=== PATIENT | female | born 1960 | race Caucasian/White ===

== ENCOUNTER 2016-12-27 17:43 | Inpatient (IN) | payer BC ==
[2016-12-27] MEDS ORDERED: MORPHINE SULFATE 4 MG INJ IV ONE (18:42)
[2016-12-27] MEDS ORDERED: DUONEB 0.5-3 MG/3 ml Neb IH ONE ×2 (18:42→18:53)
[2016-12-27] MEDS ORDERED: Zofran 4 MG/2 ML VIAL IV ONE (18:42)
[2016-12-27] MEDS ORDERED: Sodium Chloride 0.9% 1000 ML 1,000 ML IV SCH (18:45)
--- NOTE | 2016-12-27 18:47 | ERPHSYRPT ---
- History of Present Illness Time Seen by Provider: 12/27/16 18:44 Source: patient Exam Limitations: no limitations Physician History: 56 y/o female comes to the ER with complaints of diffuse bone pain, pleuritic chest pain, cough, subjective fever and chills for the past 3 days. Pt states she feels the same as when she had a walking pneumonia. Pt describes the pain as sharp, constant, 10/10 and not relieved by norco. Pt also admits to dry heaving and occasional vomiting. Timing/Duration: day(s) (3 days) Cough Quality/Degree: moderate Possible Cause: no prior episodes Associated Symptoms: fever, chills, chest pain/soreness, cough Allergies/Adverse Reactions: venom-wasp [Wasp Venom] Allergy (Intermediate, Verified 12/27/16 18:51) air way swelling fluticasone propionate [From Advair Diskus] Adverse Reaction (Mild, Verified 18:51) mouth sores salmeterol xinafoate [From Advair Diskus] Adverse Reaction (Mild, Verified 12/27 18:51) mouth sores Home Medications: Aspirin 81 gm Chew [Baby Aspirin 81 mg Chew] 81 mg PO DAILY 12/10/13 [ History] Cyclobenzaprine HCl [Flexeril] 10 mg PO HS PRN 12/10/13 [History] Hydrocodone Bit/Acetaminophen [Hydrocodon-Acetaminophen 5-500] 1 each PO Q4- 6HPRN 12/10/13 [History] Lorazepam 0.5 mg [Ativan 0.5 MG] 0.5 mg PO QID PRN 12/10/13 [History] Omeprazole [Prilosec] 40 mg PO DAILY 12/10/13 [History] Hx Tetanus, Diphtheria Vaccination/Date Given: Yes Hx Influenza Vaccination/Date Given: No Hx Pneumococcal Vaccination/Date Given: Yes (T-1) - Review of Systems Constitutional: Fever, Chills, Weakness Eyes: No Symptoms Ears, Nose, & Throat: No Symptoms Respiratory: Cough, No Dyspnea Cardiac: Chest Pain, No Edema, No Syncope Abdominal/Gastrointestinal: No Abdominal Pain, No Nausea, No Vomiting, No Diarrhea Genitourinary Symptoms: No Dysuria Musculoskeletal: Arthralgias, Joint Pain, No Back Pain, No Neck Pain Skin: No Rash Neurological: No Dizziness, No Focal Weakness, No Sensory Changes Psychological: No Symptoms Endocrine: No Symptoms All Other Systems: Reviewed and Negative - Past Medical History Pertinent Past Medical History: Yes Neurological History: Migraines ENT History: No Pertinent History Cardiac History: Other Respiratory History: COPD Endocrine Medical History: No Pertinent History Musculoskeletal History: Other GI Medical History: GERD, Other History: No Pertinent History Psycho-Social History: Anxiety Female Reproductive Disorders: No Pertinent History Other Medical History: hiatal hernia, cardiac ablation, back disc problems - Past Surgical History Past Surgical History: Yes Neuro Surgical History: No Pertinent History Cardiac: Other Respiratory: No Pertinent History Gastrointestinal: No Pertinent History Genitourinary: No Pertinent History Musculoskeletal: Orthopedic Surgery Female Surgical History: Section, Other Other Surgical History: right arm and shoulder. left shoulder cystectomy. 2 tubal pregnancies. heart ablations - Social History Smoking Status: Former smoker How long have you smoked: 20years Exposure to second hand smoke: No Drug Use: none Patient Lives Alone: No - Female History Hx Now: No - Nursing Vital Signs Nursing Vital Signs: Initial Vital Signs Temperature 102.7 F Pulse Rate 96 Respiratory Rate 18 Blood Pressure [Left Arm] 116/54 Blood Pressure [Right Arm] 98/79 Pain Intensity 10 - Physical Exam General Appearance: mild distress, alert Eye Exam: PERRL/EOMI, eyes nml inspection Ears, Nose, Throat Exam: normal ENT inspection, TMs normal, pharynx normal, moist mucous membranes Neck Exam: normal inspection, non-tender, supple, full range of motion Respiratory Exam: normal breath sounds, wheezing, No respiratory distress Cardiovascular Exam: regular rate/rhythm, normal heart sounds Gastrointestinal/Abdomen Exam: soft, No tenderness Back Exam: normal inspection, No CVA tenderness, No vertebral tenderness Extremity Exam: normal inspection, normal range of motion Neurologic Exam: alert, oriented x 3, cooperative, normal mood/affect, sensation nml, No motor deficits Skin Exam: normal color, warm, dry, No rash Lymphatic Exam: No adenopathy - Course Nursing assessment & vital signs reviewed: Yes Ordered Tests: Active Orders 24 hr Category Date Time Status EKG-ER Only STAT Care 12/27/16 18:41 Active CHEST 2 VIEWS (PA AND LAT) Stat Exams 12/27/16 18:41 Taken BLOOD CULTURE Stat Lab 12/27/16 19:09 Received BNP [NT PRO BNP] Stat Lab 12/27/16 19:09 Completed CBCD [CBC W DIFF] Stat Lab 12/27/16 18:55 Completed CMP Stat Lab 12/27/16 18:55 Completed CULTURE,URINE Stat Lab 12/27/16 20:37 Received Lactic Acid Stat Lab 12/27/16 18:57 Completed TROPONIN Stat Lab 12/27/16 19:10 Completed UA W/ MICROSCOPIC Stat Lab 12/27/16 20:37 Completed Respiratory Nebulizer STAT RT 12/27/16 18:42 Completed Medication Summary Generic Name Dose Route Start Last Admin Trade Name Freq PRN Reason Stop Dose Admin Sodium Chloride 1,000 mls @ 150 mls/hr 12/27/16 18:45 12/27/16 18:57 Sodium Chloride 0.9% 1000 Ml IV 01/26/17 18:44 150 mls/hr .[id number] BERNARD Administration Discontinued Medications Generic Name Dose Route Start Last Admin Trade Name Freq PRN Reason Stop Dose Admin Acetaminophen 975 mg 12/27/16 19:00 12/27/16 19:06 Tylenol 325 Mg PO 12/27/16 19:01 975 mg STAT STA Administration Acetaminophen Confirm 12/27/16 19:06 Tylenol 325 Mg Administered 12/27/16 19:07 Dose 975 mg .ROUTE .STK-MED ONE Albuterol/Ipratropium 3 ml 12/27/16 18:42 12/27/16 18:58 Duoneb 0.5-3 Mg/3 Ml Neb IH 12/27/16 18:43 3 ml STAT ONE Administration Albuterol/Ipratropium Confirm 12/27/16 18:53 Duoneb 0.5-3 Mg/3 Ml Neb Administered 12/27/16 18:54 Dose 3 ml IH .STK-MED ONE Piperacillin Sod/Tazobactam Sod 3.375 gm in 100 mls @ 200 mls/hr 12/27/16 18: 55 Zosyn 3.375gm/100 Ml D5w IV 12/27/16 19:24 STAT STA Vancomycin HCl 1 gm in 250 mls @ 167 mls/hr 12/27/16 18:55 12/27/16 19:05 Vancomycin 1gm/ Ns 250ml IV 12/27/16 20:24 167 mls/hr STAT ONE Administration Vancomycin HCl Confirm 12/27/16 19:03 Vancomycin 1gm/ Ns 250ml Administered 12/27/16 19:04 Dose 250 mls @ ud IV .STK-MED ONE Morphine Sulfate 4 mg 12/27/16 18:42 12/27/16 18:57 Morphine Sulfate 4 Mg Inj IV 12/27/16 18:43 4 mg STAT ONE Administration Morphine Sulfate Confirm 12/27/16 18:56 Morphine Sulfate 4 Mg Inj Administered 12/27/16 18:57 Dose 4 mg .ROUTE .STK-MED ONE Ondansetron HCl 4 mg 12/27/16 18:42 12/27/16 18:57 Zofran 4 Mg/2 Ml Vial IV 12/27/16 18:43 4 mg STAT ONE Administration Ondansetron HCl Confirm 12/27/16 18:55 Zofran 4 Mg/2 Ml Vial Administered 12/27/16 18:56 Dose 4 mg .ROUTE .STK-MED ONE Lab/Rad Data: Laboratory Result Diagrams 12/27/16 18:55 12/27/16 18:55 Laboratory Results 12/27/16 12/27/16 12/27/16 Range/Units 20:37 19:10 19:09 WBC (4.0-10.5) K/mm3 RBC (4.1-5.4) M/mm3 Hgb (12.0-16.0) gm/dl Hct (35-47) % MCV (78-100) fl MCH (26-32) pg MCHC (32-36) g/dl RDW (11.5-14.0) % Plt Count (150-450) K/mm3 MPV (6-9.5) fl Gran % (36.0-66.0) % Lymphocytes % (24.0-44.0) % Monocytes % (0.0-12.0) % Eosinophils % (0.00-5.0) % Basophils % (0.0-0.4) % Basophils # (0-0.4) Sodium (136-145) mEq/L Potassium (3.5-5.1) mEq/L Chloride (98-107) mEq/L Carbon Dioxide (21-32) mEq/L Anion Gap (5-15) MEQ/L BUN (9-20) mg/dL Creatinine (0.55-1.30) mg/dl Estimated GFR ML/MIN Glucose (70-110) MG/DL Lactic Acid (0.4-2.0) Calcium (8.5-10.1) mg/dL Total Bilirubin (0.2-1.0) mg/dL AST (15-37) U/L ALT (12-78) U/L Alkaline Phosphatase (46-116) U/L Troponin I < 0.017 (0.000-0.056) ng/ml NT-Pro-B Natriuret Pep 526 H (0-125) pg/ml Serum Total Protein (6.4-8.2) gm/dL Albumin (3.4-5.0) g/dL Ur Collection Type CLEAN CATCH Urine Color DARK YELLOW (YELLOW) Urine Appearance CLEAR (CLEAR) Urine pH 5.0 (5-6) Ur Specific [place] 1.025 (1.005-1.025) Urine Protein TRACE (Negative) Urine Ketones LARGE (NEGATIVE) Urine Blood NEGATIVE (0-5) Jann/ul Urine Nitrite NEGATIVE (NEGATIVE) Urine Bilirubin MODERATE (NEGATIVE) Urine Urobilinogen NORMAL (0-1) mg/dL Ur Leukocyte Esterase NEGATIVE (NEGATIVE) Urine Microscopic RBC 2-5 (0-2) /HPF Urine Microscopic WBC 5-10 (0-5) /HPF Ur Epithelial Cells MODERATE (FEW) /HPF Urine Bacteria MODERATE (NEGATIVE) /HPF Urine Mucus MANY (NEGATIVE) /HPF Urine Glucose NEGATIVE (NEGATIVE) mg/dL Specimen Received 12/27/16203912/27/16 12/27/16 12/27/16 Range/Units 18:57 18:55 18:55 WBC 10.1 (4.0-10.5) K/mm3 RBC 4.48 (4.1-5.4) M/mm3 Hgb 13.1 (12.0-16.0) gm/dl Hct 39.7 (35-47) % MCV 88.6 (78-100) fl MCH 29.2 (26-32) pg MCHC 33.0 (32-36) g/dl RDW 12.9 (11.5-14.0) % Plt Count 301 (150-450) K/mm3 MPV 9.1 (6-9.5) fl Gran % 80.9 H (36.0-66.0) % Lymphocytes % 11.3 L (24.0-44.0) % Monocytes % 7.0 (0.0-12.0) % Eosinophils % 0.3 (0.00-5.0) % Basophils % 0.5 (0.0-0.4) % Basophils # 0.05 (0-0.4) Sodium 138 (136-145) mEq/L Potassium 3.5 (3.5-5.1) mEq/L Chloride 101 (98-107) mEq/L Carbon Dioxide 24.7 (21-32) mEq/L Anion Gap 16.2 H (5-15) MEQ/L BUN 24 H (9-20) mg/dL Creatinine 0.65 (0.55-1.30) mg/dl Estimated GFR > 60 ML/MIN Glucose 92 (70-110) MG/DL Lactic Acid 1.4 (0.4-2.0) Calcium 9.1 (8.5-10.1) mg/dL Total Bilirubin 0.90 (0.2-1.0) mg/dL AST 16 (15-37) U/L ALT 11 L (12-78) U/L Alkaline Phosphatase 45 L (46-116) U/L Troponin I (0.000-0.056) ng/ml NT-Pro-B Natriuret Pep (0-125) pg/ml Serum Total Protein 7.2 (6.4-8.2) gm/dL Albumin 3.3 L (3.4-5.0) g/dL Ur Collection Type Urine Color (YELLOW) Urine Appearance (CLEAR) Urine pH (5-6) Ur Specific [place] (1.005-1.025) Urine Protein (Negative) Urine Ketones (NEGATIVE) Urine Blood (0-5) Jann/ul Urine Nitrite (NEGATIVE) Urine Bilirubin (NEGATIVE) Urine Urobilinogen (0-1) mg/dL Ur Leukocyte Esterase (NEGATIVE) Urine Microscopic RBC (0-2) /HPF Urine Microscopic WBC (0-5) /HPF Ur Epithelial Cells (FEW) /HPF Urine Bacteria (NEGATIVE) /HPF Urine Mucus (NEGATIVE) /HPF Urine Glucose (NEGATIVE) mg/dL Specimen Received - Progress Progress: improved Air Movement: good Progress Note: 12/27/16 21:14 Pt feels better after receiving duoneb and solumedrol. The CXR does not show an obvious infiltrate but there appears to be some vascular congestion. Pt had an O2 sat of 88% on RA. No white count but with the patient having a fever of 102.7 , tachycardia and hypoxia, patient fits criteria for sepsis and was started on vancomycin and zosyn. Pt has been admitted to Dr Mark for sepsis and possible walking pneumonia. - Departure Time of Disposition: 21:16 Departure Disposition: In-patient Admission Clinical Impression: Sepsis Qualifiers: Sepsis type: sepsis due to unspecified organism Qualified Code(s): A41.9 - Sepsis, unspecified organism Condition: Fair Critical Care Time: Yes Critical Care Time(excluding separately billable procedures): 75-104 minutes
[2016-12-27] MEDS ORDERED: Zofran 4 MG/2 ML VIAL ONE (18:55)
[2016-12-27] MEDS ORDERED: Zosyn 3.375GM/100 Ml D5W 3.375 GM/100 ML IVPB IV STA (18:55)
[2016-12-27] MEDS ORDERED: Vancomycin 1GM/ Ns 250ML*** 1 GM/250 ML IVPB IV ONE (18:55)
[2016-12-27] MEDS ORDERED: MORPHINE SULFATE 4 MG INJ ONE (18:56)
[2016-12-27] MEDS ORDERED: TYLENOL 325 MG PO STA (19:00)
[2016-12-27] MEDS ORDERED: Vancomycin 1GM/ Ns 250ML*** 250 ML IV ONE (19:03)
[2016-12-27] MEDS ORDERED: TYLENOL 325 MG ONE (19:06)
[2016-12-27 19:13] LABS: BASOPHIL % 0.5 % (0.0-0.4); Eosinophil % 0.3 % (0.00-5.0); Granulocytes % 80.9 % (36.0-66.0); Lymphocytes % 11.3 % (24.0-44.0); Mean Cell Volume 88.6 fl (78-100); Mean Corpuscular Hemoglobin 29.2 pg (26-32); Mean Platelet Volume 9.1 fl (6-9.5); Platelet Count 301 K/mm3 (150-450); Red Blood Count 4.48 M/mm3 (4.1-5.4); Red Cell Distribution Width 12.9 % (11.5-14.0); White Blood Count 10.1 K/mm3 (4.0-10.5)
[2016-12-27 19:48] LABS: ALBUMIN 3.3 g/dL (3.4-5.0); ALKALINE PHOSPHATASE 45 U/L (46-116); ANION GAP 16.2 MEQ/L (5-15); BLOOD UREA NITROGEN 24 mg/dL (9-20); CHLORIDE 101 mEq/L (98-107); Carbon Dioxide 24.7 mEq/L (21-32); Glucose 92 MG/DL (70-110); Potassium 3.5 mEq/L (3.5-5.1); SGOT/AST 16 U/L (15-37); SGPT/ALT 11 U/L (12-78); SODIUM 138 mEq/L (136-145); Total Protein 7.2 gm/dL (6.4-8.2)
[2016-12-27 21:04] LABS: Bilirubin MODERATE (NEGATIVE); Blood NEGATIVE Ery/ul (0-5); COMPLETE URINE MICROSCOPIC? YES; Collection Type CLEAN CATCH; Glucose NEGATIVE (NEGATIVE); Leukocyte Esterase NEGATIVE (NEGATIVE); Mucus MANY /HPF (NEGATIVE)
[2016-12-27 21:05] LABS: ADD URINE CULTURE? YES (NO); Bacteria MODERATE /HPF (NEGATIVE); Epithelial Cells MODERATE /HPF (FEW)
[2016-12-27] MEDS ORDERED: Zofran 4 MG/2 ML VIAL IV PRN (21:17)
[2016-12-27] MEDS: Sodium Chloride 0.9% 1000 ML 1,000 ML IV SCH (23:59)
[2016-12-28] MEDS ORDERED: PROVENTIL 2.5 MG/3 ML NEB IH ONE (00:29)
[2016-12-28] MEDS ORDERED: PROVENTIL 2.5 MG/3 ML NEB IH PRN (00:30)
[2016-12-28] MEDS ORDERED: PROVENTIL COMMON CANISTER IH PRN (00:32)
[2016-12-28] MEDS: Zosyn 3.375GM/100 Ml D5W 3.375 GM/100 ML IVPB IV SCH ×4 (02:16→17:32)
[2016-12-28] MEDS: TYLENOL 325 MG PO PRN ×3 (03:32→20:15)
[2016-12-28] MEDS: PROVENTIL 2.5 MG/3 ML NEB IH SCH ×4 (05:47→16:52)
[2016-12-28] MEDS: Sodium Chloride 0.9% 1000 ML 1,000 ML IV SCH (06:03)
[2016-12-28 06:07] LABS: BASOPHIL % 0.4 % (0.0-0.4); Eosinophil % 0.5 % (0.00-5.0); Granulocytes % 79.7 % (36.0-66.0); Lymphocytes % 13.2 % (24.0-44.0); Mean Cell Volume 89.8 fl (78-100); Mean Corpuscular Hemoglobin 29.4 pg (26-32); Mean Platelet Volume 9.1 fl (6-9.5); Monocytes % 6.2 % (0.0-12.0); Platelet Count 249 K/mm3 (150-450); Red Blood Count 3.94 M/mm3 (4.1-5.4); White Blood Count 7.4 K/mm3 (4.0-10.5)
[2016-12-28 06:44] LABS: ALBUMIN 2.6 g/dL (3.4-5.0); ALKALINE PHOSPHATASE 34 U/L (46-116); ANION GAP 12.5 MEQ/L (5-15); BLOOD UREA NITROGEN 20 mg/dL (9-20); CHLORIDE 105 mEq/L (98-107); Carbon Dioxide 24.7 mEq/L (21-32); Glucose 105 MG/DL (70-110); SGOT/AST 14 U/L (15-37); SGPT/ALT 16 U/L (12-78); SODIUM 139 mEq/L (136-145)
[2016-12-28] MEDS: MORPHINE SULFATE 4 MG INJ IV PRN ×2 (08:00→12:42)
--- NOTE | 2016-12-28 08:45 | XRAY ---
Indication: Fever, cough, and aches. Comparison: April 03, 2014. PA/lateral chest demonstrates new right lower lobe infiltrate/atelectasis with stable COPD and small hiatal hernia. Remaining heart, lungs, and bony thorax unremarkable. Comment: Right lower lobe opacity not reported on preliminary interpretation by the ER clinician. I gave telephone report to Dr. Todd in the ER at 0900 hrs. on December 28, 2016.
--- NOTE | 2016-12-28 08:56 | PCM.HP ---
History of Present Illness - Chief Complaint Chief Complaint: Sepsis History of Present Illness: is a 56 year old female who has had cough and fever for the last 4 days, her cough is nonproductive. She has had fever and pain all over since that time period. She reports a history of copd and prior cardiac ablation. - Review of Systems Constitutional: Fever, Chills Respiratory: Cough, Short Of Breath Cardiac: No Chest Pain, No Edema, No Syncope Musculoskeletal: Myalgias Skin: No Rash All Other Systems: Reviewed and Negative Medications & Allergies Home Medications: Home Medication List Aspirin 81 gm Chew [Baby Aspirin 81 mg Chew] 81 mg PO DAILY 12/10/13 [ History Confirmed 12/27/16] Cyclobenzaprine HCl [Flexeril] 10 mg PO HS PRN 12/10/13 [History Confirmed 12/27] Hydrocodone Bit/Acetaminophen [Hydrocodon-Acetaminophen 5-500] 1 each PO Q4- 6HPRN 12/10/13 [History Confirmed 12/27/16] Lorazepam 0.5 mg [Ativan 0.5 MG] 0.5 mg PO QID PRN 12/10/13 [History Confirmed 12/27/16] Omeprazole [Prilosec] 40 mg PO DAILY 12/10/13 [History Confirmed 12/27/16] Albuterol Sulfate [Albuterol Sulfate Hfa] 2 puff IH Q4-6HPRN PRN #1 [email or web address] 04/03/14 [Rx Confirmed 12/27/16] Metoprolol Succinate 50 mg [Toprol Xl 50 MG] 50 mg PO DAILY 12/27/16 [ History Confirmed 12/27/16] Allergies/Adverse Reactions: Allergies Allergy/AdvReac Type Severity Reaction Status Date / Time venom-wasp [Wasp Venom] Allergy Intermediate air way Verified 12/27/16 18:51 swelling fluticasone propionate AdvReac Mild mouth sores Verified 12/27/16 18:51 [From Advair Diskus] salmeterol xinafoate AdvReac Mild mouth sores Verified 12/27/16 18:51 [From Advair Diskus] - Past Medical History Past Medical History: Yes Neurological History: Migraines ENT History: No Pertinent History Cardiac History: Arrhythmia, Other Respiratory History: Bronchitis, COPD, Pneumonia, Sleep Apnea Endocrine Medical History: No Pertinent History Musculoskelatal History: Other GI Medical History: GERD, Other History: No Pertinent History Pyscho-Social History: Anxiety Reproductive Disorders: No Pertinent History Comment: hiatal hernia, cardiac ablation, back disc problems - Female History Hx Last Menstrual Period: MENOPAUSE Are you now?: No - Past Surgical History Past Surgical History: Yes Neuro Surgical History: No Pertinent History Cardiac History: Other Respiratory Surgery: No Pertinent History GI Surgical History: No Pertinent History Genitourinary Surgical Hx: No Pertinent History Musculskeletal Surgical Hx: Orthopedic Surgery Female Surgical History: Section, Other Other Surgical History: right arm and shoulder bicep muscle torn in half. left shoulder cystectomy. 2 tubal pregnancies. heart ablations - Social History Smoking Status: Former smoker How long have you smoked: 20years Exposure to second hand smoke: No Alcohol: Rarely Drug Use: none - Physical Exam Vital Signs: Vital Signs - 24 hr Temp Pulse Resp BP BP Pulse Ox 12/28/16 05:47 86 22 94 L 12/28/16 03:39 99.7 F 94 H 20 107/60 93 L 12/28/16 00:31 81 20 96 12/28/16 00:05 98.5 F 72 22 91/53 96 12/27/16 21:17 88 18 96/59 95 12/27/16 20:50 18 12/27/16 20:03 96 H 18 98/79 93 L 12/27/16 18:58 101 H 20 95 12/27/16 18:50 95 H 14 116/54 94 L 12/27/16 18:43 102.7 F 103 H 22 116/54 96 Oxygen-Last 24 hours O2 Percentage 2 Liters = 28% O2 Percentage 2 Liters = 28% O2 Percentage 2 Liters = 28% General Appearance: no apparent distress, alert Respiratory Exam: crackles/rales Cardiovascular Exam: regular rate/rhythm, normal heart sounds, normal peripheral pulses Gastrointestinal/Abdomen Exam: soft, normal bowel sounds, No tenderness, No mass Extremity Exam: normal inspection, normal range of motion, pelvis stable Skin Exam: normal color, warm, dry, No rash Results - Labs Lab/Micro Results: Lab Results-Last 24 Hours 12/28/16 12/28/16 Range/Units 05:55 05:55 WBC 7.4 (4.0-10.5) K/mm3 RBC 3.94 L (4.1-5.4) M/mm3 Hgb 11.6 L (12.0-16.0) gm/dl Hct 35.4 (35-47) % MCV 89.8 (78-100) fl MCH 29.4 (26-32) pg MCHC 32.8 (32-36) g/dl RDW 13.0 (11.5-14.0) % Plt Count 249 (150-450) K/mm3 MPV 9.1 (6-9.5) fl Gran % 79.7 H (36.0-66.0) % Lymphocytes % 13.2 L (24.0-44.0) % Monocytes % 6.2 (0.0-12.0) % Eosinophils % 0.5 (0.00-5.0) % Basophils % 0.4 (0.0-0.4) % Basophils # 0.03 (0-0.4) Sodium 139 (136-145) mEq/L Potassium 3.0 L* (3.5-5.1) mEq/L Chloride 105 (98-107) mEq/L Carbon Dioxide 24.7 (21-32) mEq/L Anion Gap 12.5 (5-15) MEQ/L BUN 20 (9-20) mg/dL Creatinine 0.65 (0.55-1.30) mg/dl Estimated GFR > 60 ML/MIN Glucose 105 (70-110) MG/DL Calcium 8.3 L (8.5-10.1) mg/dL Total Bilirubin 0.70 (0.2-1.0) mg/dL AST 14 L (15-37) U/L ALT 16 (12-78) U/L Alkaline Phosphatase 34 L (46-116) U/L Serum Total Protein 6.0 L (6.4-8.2) gm/dL Albumin 2.6 L (3.4-5.0) g/dL - Other Procedures and Tests Respiratory Therapy 12/28/16 00:32 Respiratory MDI PRN 12/28/16 00:33 Respiratory Nebulizer PRN Respiratory Nebulizer QID Assessment/Plan (1) Sepsis Current Visit: Yes Status: Acute Qualifiers: Sepsis type: sepsis due to unspecified organism Qualified Code(s): A41.9 - Sepsis, unspecified organism Assessment & Plan: continue fluids, IV abx. will add lovenox for prophylaxis (2) Right lower lobe pneumonia Current Visit: Yes Status: Acute Assessment & Plan: patient initially had chest xray read as negative in ER but radiology reports shows rll opacity c/w exam, continue zosyn at this time. will monitor progress. Code(s): J18.1 - LOBAR PNEUMONIA, UNSPECIFIED ORGANISM
[2016-12-28] MEDS ORDERED: [UNRECOGNIZED DRUG - OTHER] PO SCH (10:15)
[2016-12-28] MEDS ORDERED: ACETAMINOPHEN PO SCH (10:15)
[2016-12-28] MEDS ORDERED: HYDROCODONE BIT PO SCH (10:15)
[2016-12-28] MEDS: Protonix 40MG Tablet PO SCH (10:53)
[2016-12-28] MEDS: Toprol Xl 50 MG PO SCH ×2 (10:53)
[2016-12-28] MEDS: SODIUM CHLORIDE 0.45% W/ 20 mEq KCL 1,000 ML IV SCH (10:53)
[2016-12-28] MEDS: ECOTRIN 81 MG PO SCH (10:53)
[2016-12-28] MEDS: ENOXAPARIN SODIUM SQ SCH (10:56)
[2016-12-28] MEDS: Ativan 0.5 MG PO PRN (11:00)
[2016-12-28] MEDS ORDERED: K-LYTE 25 MEQ PO ONE (11:00)
[2016-12-28] MEDS ORDERED: Lasix 20 MG/2 ML ONE (19:24)
[2016-12-28] MEDS ORDERED: LEVOFLOXACIN 750MG/150ML D5W 750 MG/150 ML BAG IV ONE (19:40)
[2016-12-28] MEDS ORDERED: Lasix 20 MG/2 ML IV ONE (20:00)
[2016-12-28] MEDS ORDERED: Phenergan 25 MG INJ IV PRN (21:52)
[2016-12-28] MEDS ORDERED: MOTRIN 600 MG PO PRN (21:53)
[2016-12-28] MEDS ORDERED: LEVOFLOXACIN 750MG/150ML D5W 750 MG/150 ML BAG IV SCH (22:00)
[2016-12-28] MEDS: NORCO 5/325 MG PO PRN (22:04)
[2016-12-29] MEDS: Zosyn 3.375GM/100 Ml D5W 3.375 GM/100 ML IVPB IV SCH ×5 (00:10→23:05)
[2016-12-29] MEDS: SODIUM CHLORIDE 0.45% W/ 20 mEq KCL 1,000 ML IV SCH ×2 (01:00→21:25)
[2016-12-29] MEDS: PROVENTIL 2.5 MG/3 ML NEB IH SCH ×4 (05:28→19:48)
[2016-12-29 07:01] LABS: BASOPHIL % 0.3 % (0.0-0.4); Eosinophil % 1.8 % (0.00-5.0); Granulocytes % 71.5 % (36.0-66.0); Lymphocytes % 19.5 % (24.0-44.0); Mean Cell Volume 90.2 fl (78-100); Mean Corpuscular Hemoglobin 28.9 pg (26-32); Mean Platelet Volume 9.2 fl (6-9.5); Monocytes % 6.9 % (0.0-12.0); Platelet Count 244 K/mm3 (150-450); Red Blood Count 4.08 M/mm3 (4.1-5.4); Red Cell Distribution Width 12.8 % (11.5-14.0); White Blood Count 6.7 K/mm3 (4.0-10.5)
[2016-12-29 07:36] LABS: ALBUMIN 2.5 g/dL (3.4-5.0); ALKALINE PHOSPHATASE 42 U/L (46-116); ANION GAP 12.9 MEQ/L (5-15); BLOOD UREA NITROGEN 11 mg/dL (9-20); CHLORIDE 101 mEq/L (98-107); Carbon Dioxide 27.2 mEq/L (21-32); Glucose 138 MG/DL (70-110); Potassium 3.2 mEq/L (3.5-5.1); SGOT/AST 23 U/L (15-37); SGPT/ALT 30 U/L (12-78); SODIUM 138 mEq/L (136-145); Total Protein 6.3 gm/dL (6.4-8.2)
--- NOTE | 2016-12-29 08:08 | PCM.NOTE ---
Date and Time: 12/29/16805 Subjective Assessment: patient is still c/o headache and significant cough. states she is coughing up more sputum at this time. Objective Exam General Appearance: no apparent distress, alert Respiratory Exam: crackles/rales Cardiovascular Exam: regular rate/rhythm, normal heart sounds Gastrointestinal/Abdomen Exam: soft, No tenderness, No mass Extremity Exam: normal inspection, normal range of motion OBJECTIVE DATA Vital Signs: Vital Signs - 24 hr Temp Pulse Resp BP Pulse Ox 12/29/16 05:28 80 20 97 12/29/16 05:25 99.3 F 100 H 15 113/69 96 12/29/16 00:00 99.2 F 92 H 23 115/75 96 12/28/16 21:41 99.5 F 106 H 24 103/70 95 12/28/16 20:54 99.3 F 104 H 18 94/69 95 12/28/16 20:35 96 12/28/16 20:00 99.0 F 100 H 23 98/65 96 12/28/16 16:53 108 H 20 94 L 12/28/16 16:00 99.8 F 111 H 18 108/61 95 12/28/16 13:45 98 H 18 94 L 12/28/16 12:00 98.1 F 101 H 18 113/65 96 12/28/16 10:10 99 H 18 97 Oxygen-Last 24 hours O2 Percentage 2 Liters = 28% O2 Percentage 2 Liters = 28% O2 Percentage 2 Liters = 28% O2 Percentage 2 Liters = 28% O2 Percentage 2 Liters = 28% Pain Assessment - Last Documented Pain Intensity 5 Pain Scale Used [facility] Intake and Output: Intake & Output 12/26/16 12/27/16 12/28/16 12/29/16 11:59 11:59 11:59 11:59 Intake Total 1038 2702 Output Total 200 1750 Balance 838 952 Weight 57.8 kg Lab Results: Lab Results-Last 24 Hours 12/29/16 12/29/16 Range/Units 06:37 06:37 WBC 6.7 (4.0-10.5) K/mm3 RBC 4.08 L (4.1-5.4) M/mm3 Hgb 11.8 L (12.0-16.0) gm/dl Hct 36.8 (35-47) % MCV 90.2 (78-100) fl MCH 28.9 (26-32) pg MCHC 32.1 (32-36) g/dl RDW 12.8 (11.5-14.0) % Plt Count 244 (150-450) K/mm3 MPV 9.2 (6-9.5) fl Gran % 71.5 H (36.0-66.0) % Lymphocytes % 19.5 L (24.0-44.0) % Monocytes % 6.9 (0.0-12.0) % Eosinophils % 1.8 (0.00-5.0) % Basophils % 0.3 (0.0-0.4) % Basophils # 0.02 (0-0.4) Sodium 138 (136-145) mEq/L Potassium 3.2 L (3.5-5.1) mEq/L Chloride 101 (98-107) mEq/L Carbon Dioxide 27.2 (21-32) mEq/L Anion Gap 12.9 (5-15) MEQ/L BUN 11 (9-20) mg/dL Creatinine 0.62 (0.55-1.30) mg/dl Estimated GFR > 60 ML/MIN Glucose 138 H (70-110) MG/DL Calcium 8.5 (8.5-10.1) mg/dL Total Bilirubin 0.70 (0.2-1.0) mg/dL AST 23 (15-37) U/L ALT 30 (12-78) U/L Alkaline Phosphatase 42 L (46-116) U/L Serum Total Protein 6.3 L (6.4-8.2) gm/dL Albumin 2.5 L (3.4-5.0) g/dL Assessment/Plan (1) Sepsis Current Visit: Yes Status: Acute Qualifiers: Sepsis type: sepsis due to unspecified organism Qualified Code(s): A41.9 - Sepsis, unspecified organism (2) Right lower lobe pneumonia Current Visit: Yes Status: Acute Assessment & Plan: continue zosyn and levaquin, nebs and supportive care. Code(s): J18.1 - LOBAR PNEUMONIA, UNSPECIFIED ORGANISM
[2016-12-29] MEDS ORDERED: K-LYTE 25 MEQ PO ONE (08:30)
[2016-12-29] MEDS: TYLENOL 325 MG PO PRN ×2 (08:44→13:37)
[2016-12-29] MEDS: Protonix 40MG Tablet PO SCH (09:55)
[2016-12-29] MEDS: ECOTRIN 81 MG PO SCH (09:59)
[2016-12-29] MEDS: ENOXAPARIN SODIUM SQ SCH (10:00)
[2016-12-29] MEDS ORDERED: NON-FORMULARY ITEM (Omeprazole [Prilosec] 40 MG) PO SCH (10:00)
[2016-12-29] MEDS ORDERED: LEVOFLOXACIN 750MG/150ML D5W 750 MG/150 ML BAG IV SCH (10:00)
[2016-12-29] MEDS ORDERED: BABY ASPIRIN 81 MG CHEW PO SCH (10:00)
[2016-12-29] MEDS: Toprol Xl 50 MG PO SCH (10:09)
[2016-12-29] MEDS: NORCO 5/325 MG PO PRN (19:45)
[2016-12-29] MEDS ORDERED: Lasix 20 MG/2 ML IV ONE (20:00)
[2016-12-29] MEDS: LEVOFLOXACIN 750MG/150ML D5W 750 MG/150 ML BAG IV SCH (21:19)
[2016-12-30] MEDS: Zosyn 3.375GM/100 Ml D5W 3.375 GM/100 ML IVPB IV SCH (05:51)
[2016-12-30 06:21] LABS: BASOPHIL % 0.3 % (0.0-0.4); Eosinophil % 4.7 % (0.00-5.0); Granulocytes % 60.8 % (36.0-66.0); Lymphocytes % 23.9 % (24.0-44.0); Mean Cell Volume 88.9 fl (78-100); Mean Corpuscular Hemoglobin 28.7 pg (26-32); Monocytes % 10.3 % (0.0-12.0); Platelet Count 280 K/mm3 (150-450); Red Blood Count 4.14 M/mm3 (4.1-5.4); White Blood Count 5.9 K/mm3 (4.0-10.5)
[2016-12-30] MEDS: NORCO 5/325 MG PO PRN (06:49)
[2016-12-30 06:57] LABS: BLOOD UREA NITROGEN 7 mg/dL (9-20); CHLORIDE 103 mEq/L (98-107); Carbon Dioxide 25.8 mEq/L (21-32); Glucose 97 MG/DL (70-110); Potassium 4.4 mEq/L (3.5-5.1); SODIUM 137 mEq/L (136-145)
[2016-12-30] MEDS: PROVENTIL 2.5 MG/3 ML NEB IH SCH ×4 (07:13→19:55)
--- NOTE | 2016-12-30 08:49 | PCM.NOTE ---
Date and Time: 12/30/1645 Subjective Assessment: She reports she continues to have a cough that is worse after breathing treatments and productive of yellow sputum. She has a history of smoking but quit 14 years ago and has a history of mild COPD. She reports her appetite is better. She did not sleep well. She has been up to the chair yesterday. - Review of Systems Constitutional: Fatigue Eyes: No Symptoms Ears, Nose, & Throat: No Symptoms Respiratory: Cough, Short Of Breath, Wheezing Cardiac: No Symptoms Abdominal/Gastrointestinal: No Symptoms Genitourinary Symptoms: No Symptoms Musculoskeletal: No Symptoms Skin: No Symptoms Objective Exam General Appearance: no apparent distress, alert Neurologic Exam: alert, cooperative, normal mood/affect Skin Exam: normal color, warm, dry, No rash Respiratory Exam: other (scattered wheezes throughout, no retractions, no crackles, + cough) Cardiovascular Exam: regular rate/rhythm, normal heart sounds, No murmur, No friction rub, No gallop Gastrointestinal/Abdomen Exam: soft, normal bowel sounds, No tenderness, No distention, No mass Extremity Exam: other (no c/c/e) OBJECTIVE DATA Vital Signs: Vital Signs - 24 hr Temp Pulse Resp BP Pulse Ox 12/30/16 08:04 97.8 F 88 22 109/67 97 12/30/16 07:48 80 12/30/16 07:14 76 18 97 12/30/16 03:23 98 F 80 18 109/71 93 L 12/30/16 00:10 98.1 F 82 16 119/74 94 L 12/30/16 00:01 82 12/29/16 21:00 98.8 F 91 H 25 H 123/70 99 12/29/16 20:00 76 12/29/16 19:48 103 H 24 97 12/29/16 17:14 98.1 F 88 17 114/64 99 12/29/16 17:00 86 19 85 L 12/29/16 16:00 101 H 12/29/16 13:52 95 H 18 85 L 12/29/16 13:00 98.6 F 97 H 18 112/63 95 12/29/16 12:00 97 H 12/29/16 10:04 94 H 18 95 12/29/16 09:00 99.3 F 109 H 20 113/69 97 Oxygen-Last 24 hours O2 Percentage 2 Liters = 28% O2 Percentage 2 Liters = 28% Pain Assessment - Last Documented Pain Intensity 0 Pain Scale Used 0-10 Pain Scale Intake and Output: Intake & Output 12/28/16 12/29/16 12/30/16 12/31/16 06:59 06:59 06:59 06:59 Intake Total 7524 2702 1633 Output Total 200 1750 2550 Balance 838 042 -917 Weight 57.8 kg 58.4 kg Lab Results: Lab Results-Last 24 Hours 12/30/16 12/30/16 Range/Units 06:07 06:07 WBC 5.9 (4.0-10.5) K/mm3 RBC 4.14 (4.1-5.4) M/mm3 Hgb 11.9 L (12.0-16.0) gm/dl Hct 36.8 (35-47) % MCV 88.9 (78-100) fl MCH 28.7 (26-32) pg MCHC 32.3 (32-36) g/dl RDW 13.0 (11.5-14.0) % Plt Count 280 (150-450) K/mm3 MPV 9.0 (6-9.5) fl Gran % 60.8 (36.0-66.0) % Lymphocytes % 23.9 L (24.0-44.0) % Monocytes % 10.3 (0.0-12.0) % Eosinophils % 4.7 (0.00-5.0) % Basophils % 0.3 (0.0-0.4) % Basophils # 0.02 (0-0.4) Sodium 137 (136-145) mEq/L Potassium 4.4 (3.5-5.1) mEq/L Chloride 103 (98-107) mEq/L Carbon Dioxide 25.8 (21-32) mEq/L Anion Gap 13.0 (5-15) MEQ/L BUN 7 L (9-20) mg/dL Creatinine 0.53 L (0.55-1.30) mg/dl Estimated GFR > 60 ML/MIN Glucose 97 (70-110) MG/DL Calcium 9.1 (8.5-10.1) mg/dL Assessment/Plan (1) Right lower lobe pneumonia Current Visit: Yes Status: Acute Assessment & Plan: Sputum culture in lab. She was started on zosyn on admission and then levofloxacin was added. I will stop the zosyn today and continue with levofloxacin. She is not at high risk of pseudomonas as she has not had any recent hospitalizations. Blood cultures no growth to date. Code(s): J18.1 - LOBAR PNEUMONIA, UNSPECIFIED ORGANISM (2) COPD exacerbation Current Visit: Yes Status: Acute Assessment & Plan: Add prednisone and continue antibiotics and breathing treatments. She is currently on room air. Code(s): J44.1 - CHRONIC OBSTRUCTIVE PULMONARY DISEASE W (ACUTE) EXACERBATION
[2016-12-30] MEDS: Toprol Xl 50 MG PO SCH (09:28)
[2016-12-30] MEDS: DELTASONE 20 MG PO SCH (09:29)
[2016-12-30] MEDS: ECOTRIN 81 MG PO SCH (09:29)
[2016-12-30] MEDS: Protonix 40MG Tablet PO SCH (09:29)
[2016-12-30] MEDS: ENOXAPARIN SODIUM SQ SCH (09:35)
[2016-12-30] MEDS: TYLENOL 325 MG PO PRN (20:38)
[2016-12-30] MEDS: LEVOFLOXACIN 750MG/150ML D5W 750 MG/150 ML BAG IV SCH (21:59)
[2016-12-30] MEDS: Ativan 0.5 MG PO PRN (22:06)
[2016-12-31] MEDS: SODIUM CHLORIDE 0.45% W/ 20 mEq KCL 1,000 ML IV SCH (04:02)
[2016-12-31] MEDS: NORCO 5/325 MG PO PRN (04:26)
[2016-12-31] MEDS: PROVENTIL 2.5 MG/3 ML NEB IH SCH ×2 (07:16→10:41)
[2016-12-31] MEDS: ECOTRIN 81 MG PO SCH (08:43)
[2016-12-31] MEDS: DELTASONE 20 MG PO SCH (08:43)
[2016-12-31] MEDS: ENOXAPARIN SODIUM SQ SCH (08:43)
[2016-12-31] MEDS: Protonix 40MG Tablet PO SCH (08:43)
[2016-12-31] MEDS: Toprol Xl 50 MG PO SCH (08:43)
--- NOTE | 2016-12-31 08:48 | PCM.DCORD ---
- Discharge Discharge Date: 12/31/16 Disposition: Home, Self-Care Condition: Fair Prescriptions: New Prednisone 20 mg [Deltasone 20 mg] 40 mg PO DAILY #6 tablet Levofloxacin 750 mg PO DAILY #2 tablet Albuterol 2.5 mg/3 ml Neb [Proventil 2.5 mg/3 ml Neb] 2.5 mg IH Q4H PRN PRN #50 units PRN Reason: Shortness Of Breath/Wheezing Continue Cyclobenzaprine HCl [Flexeril] 10 mg PO HS PRN PRN Reason: Muscle Spasms Hydrocodone Bit/Acetaminophen [Hydrocodon-Acetaminophen 5-500] 1 each PO Q4- 6HPRN Aspirin 81 gm Chew [Baby Aspirin 81 mg Chew] 81 mg PO DAILY Omeprazole [Prilosec] 40 mg PO DAILY Lorazepam 0.5 mg [Ativan 0.5 MG] 0.5 mg PO QID PRN PRN Reason: Anxiety Albuterol Sulfate [Albuterol Sulfate Hfa] 2 puff IH Q4-6HPRN PRN #1 [id number].[id number] PRN Reason: cough/breathing Metoprolol Succinate 50 mg [Toprol Xl 50 MG] 50 mg PO DAILY Follow up with: JESSENIA SAENZ [Primary Care Provider] -
[2016-12-31 11:39] VITALS: BP 108/59; PULSE 99; O2SAT 94
--- NOTE | 2017-01-01 09:29 | DS ---
DISCHARGE DIAGNOSES: 1) RIGHT LOWER LOBE PNEUMONIA. 2) CHRONIC OBSTRUCTIVE PULMONARY DISEASE EXACERBATION. 3) SEPSIS. DISCHARGE PHYSICAL EXAMINATION: VITALS: Temperature current 98.3F, temperature max 98.6F, heart rate 83 to 103, respiratory rate 17 to 18, blood pressure 96 to 110 over 54 to 57. Oxygen saturation 92 to 94% on room air. GENERAL: The patient is a pleasant talkative lady sitting up in bed in no acute distress. CVS: She has a regular rate and rhythm. No murmurs, gallops or rubs are appreciated. CHEST: She has a few scattered wheezes. Equal breath sounds. No crackles. Frequent cough that is nonproductive. EXTREMITIES: No clubbing, cyanosis or edema. SKIN: Warm, dry and intact. HOSPITAL COURSE: 1) RIGHT LOWER LOBE PNEUMONIA: She had a chest x-ray that was read by the radiologist as right lower lobe pneumonia. She was initially started on Zosyn on her admission and then Levaquin was added on 12/29/2016. On 12/30/2016, I stopped the Zosyn. She had blood cultures that are no growth to date and a sputum culture in lab with a gram stain with many white blood cells, rare gram positive cocci and the culture came back normal respiratory destiney with light growth. The patient was weaned to room air during her hospitalization. She was given breathing treatments every four hours as needed. I am going to have her finish out two more days of levofloxacin at home. 2) CHRONIC OBSTRUCTIVE PULMONARY DISEASE EXACERBATION: I started her on prednisone 60 mg p.o. daily on 12/30/2016. She will receive a dose again today on 12/31/2016 and then we will do 40 mg p.o. daily for three more days. She is doing well with the nebulizer for her chronic obstructive pulmonary disease an order was written for a nebulizer machine which is going to be sent to [facility] as the Albuterol inhaler by itself was not controlling her symptoms. 3) SEPSIS: She was initially admitted with sepsis diagnosis but at this time has resolved. Again her blood cultures have been no growth. Her blood pressure has been stable. She has been ambulating in the room. No nausea, vomiting and eating well. DISCHARGE MEDICATIONS: She is to resume her home medications and also take the prednisone 40 mg daily for three more days. Levofloxacin 750 mg daily for two more days and then Albuterol nebulized every four hours as needed. FOLLOW UP: She is to follow up with me this coming Friday and we will fill out her FMLA forms then.
== END 2016-12-31 12:20 | disposition home or self-care (01) | DRG 193 ==
LOC: ED 17:43 → ICU 22:52 → MED SURG 12-30 10:15
PROVIDERS: ADMIT Family Medicine; ATTEND Family Medicine
DX: J18.1 Lobar pneumonia, unspecified organism (principal); A41.9 Sepsis, unspecified organism; J44.1 Chronic obstructive pulmonary disease with (acute) exacerbation; M79.1 Myalgia; G47.30 Sleep apnea, unspecified; K21.9 Gastro-esophageal reflux disease without esophagitis; F41.9 Anxiety disorder, unspecified; Z87.891 Personal history of nicotine dependence; Z79.899 Other long term (current) drug therapy
CPT/HCPCS: 36000; 36415; 71020; 80048; 80053; 81000; 83605; 83880; 84484; 85025; 87040; 87070; 87086; 93005; 94640; 94760; 96360; 96361; 96365; 96366; 96367; 96374; 96375; 99285; J1650; J1940; J1956; J2270; J2405; J2543; J2550; J3370; A9270-GY; J7506

== ENCOUNTER 2017-07-25 05:52 | Day surgery (SDC) | payer BC ==
[2017-07-25] MEDS ORDERED: Versed 2 MG/2 ML Injection IV ONE (05:53)
[2017-07-25] MEDS ORDERED: DIPRIVAN 200 MG/20 ML IV ONE (05:53)
[2017-07-25] MEDS ORDERED: Lactated Ringers 1,000 ML IV SCH (07:00)
[2017-07-25] MEDS ORDERED: Lactated Ringers 1,000 ML IV ONE (07:10)
[2017-07-25 08:47] VITALS: O2SAT 97
[2017-07-25 09:11] VITALS: BP 103/54; PULSE 78
--- NOTE | 2017-07-28 09:45 | OP ---
SURGERY DATE/TIME: 07/25/2017 0750 PREOPERATIVE DIAGNOSIS: Epigastric pain and reflux. POSTOPERATIVE DIAGNOSIS: Hiatal hernia and mild gastritis. PROCEDURE: Esophagogastroduodenoscopy with biopsy. SURGEON: Dr. Leach. ANESTHESIA: Medications were given by the anesthesia department. BRIEF HISTORY: The patient is a 57 year-old white female who presents now for endoscopic evaluation due to presence of epigastric pain. The patient does take aspirin but she was also on omeprazole. She reports she has had problems more recently over the past two weeks but has had problems in the past and was scoped in 2002 for similar problem. The patient was reappraised of the risks of the procedure including the risk of perforation, phlebitis, untoward reaction to medication, bleeding and missed lesions. The patient verbalized her understanding and desired to have the procedure performed. DESCRIPTION OF PROCEDURE: The patient was given the medications by the anesthesia department. She had continuous pulse oximetry, ECG monitoring, intermittent blood pressure monitoring and tidal CO2 monitoring during the examination. She was placed in the left lateral decubitus position. A bite block was placed and the flexible Olympus gastroscope was used to intubate the oropharynx. The esophagus was easily intubated and appeared to be normal to the gastroesophageal junction where there did appear to be a hiatal hernia. The scope was passed into the stomach where normal gastric rugal folds were seen which distended nicely with insufflation of air. The scope was passed along the greater curvature of the stomach to the antrum which appeared to be mildly erythematous. The pylorus was encountered and intubated. The duodenum inspected and found to be normal. The scope is withdrawn towards the stomach. A retroflex view was obtained of the lesser curvature, fundus and cardia regions of the stomach again was noted the hiatal hernia. The scope was then redirected towards the antrum and biopsies were obtained to rule out the presence of Helicobacter pylori-type organisms. The scope was then removed from the patient who tolerated the procedure well and was sent back to the hospital acosta in good condition.
== END 2017-07-25 08:55 | disposition home or self-care (01) ==
LOC: SDC 05:52
PROVIDERS: ATTEND Family Medicine
PROC: 0DB78ZX Excision of Stomach, Pylorus, Via Natural or Artificial Opening Endoscopic, Diagnostic (ICD-10-PCS; principal; 2017-07-25)
DX: K44.9 Diaphragmatic hernia without obstruction or gangrene (principal); K29.70 Gastritis, unspecified, without bleeding; K21.9 Gastro-esophageal reflux disease without esophagitis; J44.9 Chronic obstructive pulmonary disease, unspecified
CPT/HCPCS: 00731; 88305; J2250; J2704

== ENCOUNTER 2017-08-08 17:43 | Emergency (ER) | payer BC ==
[2017-08-08 18:00] VITALS: BP 120/76; PULSE 74; O2SAT 100
--- NOTE | 2017-08-08 18:11 | ERPHSYRPT ---
- History of Present Illness Time Seen by Provider: 08/08/17 18:05 Source: patient Exam Limitations: no limitations Patient Subjective Stated Complaint: right knee pain, fall while going upstair Triage Nursing Assessment: right knee pain, swelling with abrasion, no LOC or emesis since fall. C/o right elbow pain, no swelling, good ROM. Physician History: The patient is a 57-year-old female with family complaining that she tripped while walking up the stairs, striking her right knee and right elbow on the stairs. She did not hit her head. She did not lose consciousness. She scraped her skin on her knee. She can walk on her right leg. Her past medical history is significant for GERD, hypertension, COPD, and chronic pain. Occurred: just prior to arrival Reason for Fall: lost balance, fell from standing pos Injuries/Pain Location: upper extremity (right elbow), lower extremity (right knee) Loss of Consciousness: no loss of consciousness Quality: aching Severity of Pain-Max: moderate Severity of Pain-Current: moderate Modifying Factors: Improves With: nothing Associated Symptoms (Fall): denies symptoms Allergies/Adverse Reactions: venom-wasp [Wasp Venom] Allergy (Intermediate, Verified 07/24/17 13:58) air way swelling fluticasone propionate [From Advair Diskus] Adverse Reaction (Mild, Verified 01/31 13:58) mouth sores salmeterol xinafoate [From Advair Diskus] Adverse Reaction (Mild, Verified 07/24 13:58) mouth sores Home Medications: Cyclobenzaprine HCl [Flexeril] 10 mg PO HSPRN PRN 12/10/13 [History] Hydrocodone Bit/Acetaminophen [Hydrocodon-Acetaminophen 5-500] 1 each PO Q4- 6HPRN 12/10/13 [History] Omeprazole [Prilosec] 40 mg PO DAILY 12/10/13 [History] Metoprolol Succinate 50 mg [Toprol Xl 50 MG] 50 mg PO DAILY 12/27/16 [ History] Cholecalciferol (Vitamin D3) [Vitamin D] 1 tab PO DAILY 07/24/17 [History] Escitalopram Oxalate 10 mg [Lexapro 10 MG] 10 mg PO DAILY 07/25/17 [History] Hx Tetanus, Diphtheria Vaccination/Date Given: Yes Hx Influenza Vaccination/Date Given: Yes Hx Pneumococcal Vaccination/Date Given: Yes Immunizations Up to Date: Yes - Review of Systems Constitutional: No Fever, No Chills Eyes: No Symptoms Ears, Nose, & Throat: No Symptoms Respiratory: No Cough, No Dyspnea Cardiac: No Chest Pain, No Edema, No Syncope Abdominal/Gastrointestinal: No Abdominal Pain, No Nausea, No Vomiting, No Diarrhea Genitourinary Symptoms: No Dysuria Musculoskeletal: Fall, Injury, No Back Pain, No Neck Pain Skin: No Rash Neurological: No Dizziness, No Focal Weakness, No Sensory Changes Psychological: No Symptoms Endocrine: No Symptoms Hematologic/Lymphatic: No Symptoms Immunological/Allergic: No Symptoms All Other Systems: Reviewed and Negative - Past Medical History Pertinent Past Medical History: Yes Neurological History: Migraines ENT History: No Pertinent History Cardiac History: Arrhythmia, Other Respiratory History: Bronchitis, COPD, Pneumonia, Sleep Apnea Endocrine Medical History: No Pertinent History Musculoskeletal History: Other GI Medical History: GERD, Other History: No Pertinent History Psycho-Social History: Anxiety Female Reproductive Disorders: Other Other Medical History: hiatal hernia, cardiac ablation, back disc problems, tubal pregnancies x2. - Past Surgical History Past Surgical History: Yes Neuro Surgical History: No Pertinent History Cardiac: Other Respiratory: No Pertinent History Gastrointestinal: No Pertinent History Genitourinary: No Pertinent History Musculoskeletal: Orthopedic Surgery Female Surgical History: Section, Other Other Surgical History: right arm and shoulder bicep muscle torn in half. left shoulder cystectomy. 2 tubal pregnancies. heart ablations - Social History Smoking Status: Former smoker How long have you smoked: 20years Exposure to second hand smoke: No Drug Use: none Patient Lives Alone: No - Female History Hx Now: No - Nursing Vital Signs Nursing Vital Signs: Initial Vital Signs Temperature 97.7 F 08/08/17 17:59 Pulse Rate 74 08/08/17 17:59 Respiratory Rate 20 08/08/17 17:59 Blood Pressure 120/76 08/08/17 17:59 O2 Sat by Pulse Oximetry 100 08/08/17 17:59 Pain Scale Pain Intensity 6 - [place] Coma Score Best Eye Response ([place]): (4) open spontaneously Best Verbal Response ([place]): (5) oriented Best Motor Response ([place]): (6) obeys commands [place] Total: 15 - Physical Exam General Appearance: no apparent distress, alert Head Injury: no evidence of injury Eye Exam: PERRL/EOMI ENT Exam: airway nml Neck Exam: normal inspection, No tenderness Respiratory/Chest Exam: normal breath sounds, No chest tenderness, No respiratory distress Cardiovascular Exam: normal heart sounds, regular rate/rhythm Gastrointestinal Exam: soft, No tenderness, No distention, No guarding, No ecchymosis Rectal Exam: not done Back Exam: normal inspection, No vertebral tenderness Extremity Exam: tenderness (Examination of the right knee reveals a skin abrasion, tenderness, and bruising in the infrapatellar region. She has pain with movement. Examination of the right elbow reveals minimal abnormalities. There is a tiny abrasion. She moves the elbow without problems.) Neurologic Exam: alert, oriented x 3, cooperative, sensation nml, No motor deficits Skin Exam: abrasion, ecchymosis SpO2 Interpretation: normal SpO2: 100 Oxygen Delivery: Room Air - Radiology Exams Right Elbow X-ray Interpretation: Interpreted by me, Negative Right Knee X-ray Interpretation: Interpreted by me, Negative Ordered Tests: Active Orders 24 hr Category Date Time Status ELBOW (2 VIEW) Stat Exams 08/08/17 18:06 Ordered KNEE (3 VIEWS) Stat Exams 08/08/17 17:58 Ordered Medication Summary Discontinued Medications Generic Name Dose Route Start Last Admin Trade Name Jun PRN Reason Stop Dose Admin Diphtheria/Tetanus/Acell Pertussis 0.5 ml 08/08/17 18:24 08/08/17 18:41 Adacel Vial IM 08/08/17 18:25 0.5 ml .ONCE ONE Administration Diphtheria/Tetanus/Acell Pertussis Confirm 08/08/17 18:33 Adacel Vial Administered 08/08/17 18:34 Dose 0.5 ml IM .STK-MED ONE Ketorolac Tromethamine 60 mg 08/08/17 18:24 08/08/17 18:42 Toradol 30 Mg Injection IM 08/08/17 18:25 60 mg STAT ONE Administration Ketorolac Tromethamine Confirm 08/08/17 18:33 Toradol 30 Mg Injection Administered 08/08/17 18:34 Dose 60 mg .ROUTE .STK-MED ONE - Progress Progress: improved Counseled pt/family regarding: rad results - Departure Time of Disposition: 19:10 Departure Disposition: Home Clinical Impression: Contusion of right knee, Contusion of right elbow Condition: Stable Critical Care Time: No Referrals: JESSENIA SAENZ [Primary Care Provider] - Additional Instructions: You have a contusion of your right knee and right elbow. You were given Toradol 60 mg by IM in the ER. Keep ice on the areas for 10-15 minutes 3 times a day. Take Tylenol and ibuprofen as needed. You may also take some of your extra pain medicines at you have as needed. Follow-up as needed.
[2017-08-08] MEDS ORDERED: Adacel Vial IM ONE ×2 (18:24→18:33)
[2017-08-08] MEDS ORDERED: TORAdol 30 mg Injection IM ONE (18:24)
[2017-08-08] MEDS ORDERED: TORAdol 30 mg Injection ONE (18:33)
--- NOTE | 2017-08-08 22:26 | XRAY ---
Indication: Pain and laceration following fall. Comparison: December 07, 2010. 3 views of the right knee obtained. No bony, articular, or soft tissue abnormalities.
--- NOTE | 2017-08-08 22:26 | XRAY ---
Indication: Pain following fall. Comparison: None 2 views of the right elbow obtained. No bony, articular, or soft tissue abnormalities.
== END 2017-08-08 19:23 | disposition home or self-care (01) ==
LOC: ED 17:43
DX: S80.01XA Contusion of right knee, initial encounter (principal); S50.01XA Contusion of right elbow, initial encounter; W10.9XXA Fall (on) (from) unspecified stairs and steps, initial encounter
CPT/HCPCS: 73070; 73562; 90471; 90715; 96372; 99282; 99284; J1885

== ENCOUNTER 2019-02-19 10:05 | Emergency (ER) | payer MEDICAID, OTHER ==
--- NOTE | 2019-02-19 10:15 | ERPHSYRPT ---
- History of Present Illness Time Seen by Provider: 02/19/19 10:05 Source: patient Exam Limitations: no limitations Physician History: Patient was hit in the mouth with a couch while assisting moving it. It caused a laceration to the lower lip when it hit her teeth. Timing/Duration: abrupt onset Severity: moderate ENT Location: mouth Prearrival Treatment: no prearrival treatment Modifying Factors: Improves With: other (direct pressure stopped bleeding) Associated Symptoms: No ear pain (R), No ear pain (L), No cough, No chills, No change in hearing, No dizziness, No drooling, No ear drainage, No facial pain/ swelling, No headache, No hearing loss, No jaw pain, No motion sickness, No nasal congestion/drainage, No epistaxis, No nasal foreign body, No neck pain, No ringing of ears, No sore throat, No tooth pain, No difficulty swallowing, No voice change Allergies/Adverse Reactions: venom-wasp [Wasp Venom] Allergy (Intermediate, Verified 07/24/17 13:58) air way swelling fluticasone propionate [From Advair Diskus] Adverse Reaction (Mild, Verified 01/31 13:58) mouth sores salmeterol xinafoate [From Advair Diskus] Adverse Reaction (Mild, Verified 07/24 13:58) mouth sores Home Medications: Cyclobenzaprine HCl [Flexeril] 10 mg PO HSPRN PRN 12/10/13 [History] Hydrocodone Bit/Acetaminophen [Hydrocodon-Acetaminophen 5-500] 1 each PO Q4- 6HPRN 12/10/13 [History] Omeprazole [Prilosec] 40 mg PO DAILY 12/10/13 [History] Metoprolol Succinate 50 mg [Toprol Xl 50 MG] 50 mg PO DAILY 12/27/16 [ History] Cholecalciferol (Vitamin D3) [Vitamin D] 1 tab PO DAILY 07/24/17 [History] Escitalopram Oxalate 10 mg [Lexapro 10 MG] 10 mg PO DAILY 07/25/17 [History] Hx Tetanus, Diphtheria Vaccination/Date Given: Yes Hx Influenza Vaccination/Date Given: Yes Hx Pneumococcal Vaccination/Date Given: Yes - Review of Systems Constitutional: No Fever, No Chills Eyes: No Eye Pain, No Vision Changes Ears, Nose, & Throat: No Ear Pain, No Tinnitus, No Nose Pain, No Nose Congestion , No Nose Discharge, No Epistaxis, No Mouth Pain, No Loose Teeth, No Throat Swelling, No Hoarse, No Painful Swallowing Respiratory: No Cough, No Dyspnea Cardiac: No Chest Pain, No Edema, No Syncope Abdominal/Gastrointestinal: No Abdominal Pain, No Nausea, No Vomiting, No Diarrhea Genitourinary Symptoms: No Flank Pain Musculoskeletal: No Back Pain, No Neck Pain Skin: No Rash Neurological: No Dizziness, No Focal Weakness, No Seizure, No Sensory Changes, No Tremors Psychological: No Symptoms Endocrine: No Symptoms Hematologic/Lymphatic: No Easy Bleeding, No Easy Bruising All Other Systems: Reviewed and Negative - Past Medical History Pertinent Past Medical History: Yes Neurological History: Migraines ENT History: No Pertinent History Cardiac History: Arrhythmia Respiratory History: COPD Endocrine Medical History: No Pertinent History Musculoskeletal History: Other GI Medical History: GERD, Other History: No Pertinent History Psycho-Social History: Anxiety Female Reproductive Disorders: Other Other Medical History: 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 - Past Surgical History Past Surgical History: Yes Neuro Surgical History: No Pertinent History Cardiac: Other Respiratory: No Pertinent History Gastrointestinal: No Pertinent History Genitourinary: No Pertinent History Musculoskeletal: Orthopedic Surgery Female Surgical History: Section, Other Other Surgical History: right arm and shoulder bicep muscle torn in half. left shoulder cystectomy. 2 tubal pregnancies. heart ablations - Social History Smoking Status: Former smoker How long have you smoked: 20years Exposure to second hand smoke: No Drug Use: none Patient Lives Alone: No - Nursing Vital Signs Nursing Vital Signs: Initial Vital Signs Temperature 98 F 02/19/19 10:12 Pulse Rate 80 02/19/19 10:12 Respiratory Rate 20 02/19/19 10:12 Blood Pressure 147/89 02/19/19 10:12 O2 Sat by Pulse Oximetry 97 02/19/19 10:12 Pain Scale Pain Intensity 10 - Physical Exam General Appearance: no apparent distress, alert Eye Exam: bilateral eye: PERRL, EOMI Ear Exam: bilateral ear: auricle normal, canal normal, TM normal Nasal Exam: normal inspection, No active bleeding, No dried blood, No foreign body, No sinus tenderness Throat Exam: pharynx normal, moist mucus membranes, No mandibular swelling, No pharynx swelling, No tonsillar exudate, No trismus Neck Exam: normal inspection, non-tender, supple, full range of motion, trachea midline, No limited range of motion, No lymphadenopathy (R) Cardiovascular/Respiratory Exam: normal breath sounds, regular rate/rhythm, heart sounds normal, no respiratory distress Abdominal Exam: non-tender, soft Neurologic Exam: alert, oriented x 3, cooperative, locum tenens hospitalist II-XII nml as tested, normal mood/affect, sensation nml, No motor deficits, No sensory deficit, No facial droop Skin Exam: normal color, warm, dry, other (laceration to the lower lip on the central aspect. Measures total 1 cm in a jagged, Y shape; no active bleeding; gapes when opens) SpO2 Interpretation: normal O2 Delivery: Room Air Procedures - Laceration/Wound Repair Lip Wound Length (cm): 1 Wound's Depth, Shape: superficial, irregular Wound Explored: clean Irrigated: Yes Volume Anesthetic (ccs): 0 Wound Debrided: none Wound Repaired With: Dermabond Number Deep Layer Sutures: 0 Sterile Dressing Applied?: No Splint Applied?: No - Progress Progress: improved Counseled pt/family regarding: diagnosis, need for follow-up, rad results - Departure Departure Disposition: Home Clinical Impression: Elevated blood pressure reading without diagnosis of hypertension Laceration of lip without complication Qualifiers: Encounter type: initial encounter Qualified Code(s): S01.511A - Laceration without foreign body of lip, initial encounter Condition: Good Critical Care Time: No Referrals: JESSENIA SAENZ [Primary Care Provider] - Follow Up with PCP/3 days Instructions: Laceration Repair With Glue (DC), DASH Diet Additional Instructions: return to the emergency department if any worse at any time such as fever, worsening swelling, worsening pain or any other concerning signs or symptoms that were not present at today's emergency department visit for immediate evaluation in the emergency department
[2019-02-19 10:22] VITALS: BP 147/89; PULSE 80; O2SAT 97
== END 2019-02-19 10:42 | disposition home or self-care (01) ==
LOC: ED 10:05
DX: S01.511A Laceration without foreign body of lip, initial encounter (principal); W22.03XA Walked into furniture, initial encounter; Y93.89 Activity, other specified; W22.09XA Striking against other stationary object, initial encounter
CPT/HCPCS: 12011; 99283

== ENCOUNTER 2019-11-09 22:50 | Emergency (ER) | payer MEDICAID ==
--- NOTE | 2019-11-09 22:52 | ERPHSYRPT ---
- History of Present Illness Time Seen by Provider: 11/09/19 22:52 Source: patient Exam Limitations: no limitations Physician History: 59-year-old white female who was working out in her yard in pool area when she felt a piece of sand hit her left eye. In the last couple days she has had worsening pain and tearing and redness. She feels as though there is a foreign body present. He is rinsed out her eye several times but there is been no improvement in her symptoms. Timing/Duration: day(s) (2) Location: left eye Severity: moderate Apparent Injury: yes Associated Symptoms: pain, burning, sensitivity to light, redness, foreign body sensation Visual Assistive Devices: Contacts Chemical Exposure: No Trauma: Yes (Sand in her eye) Allergies/Adverse Reactions: venom-wasp [Wasp Venom] Allergy (Intermediate, Verified 07/24/17 13:58) air way swelling fluticasone propionate [From Advair Diskus] Adverse Reaction (Mild, Verified 01/31 13:58) mouth sores salmeterol xinafoate [From Advair Diskus] Adverse Reaction (Mild, Verified 07/24 13:58) mouth sores Home Medications: Cyclobenzaprine HCl [Flexeril] 10 mg PO HSPRN PRN 12/10/13 [History] Hydrocodone Bit/Acetaminophen [Hydrocodon-Acetaminophen 5-500] 1 each PO Q4- 6HPRN 12/10/13 [History] Omeprazole [Prilosec] 40 mg PO DAILY 12/10/13 [History] Metoprolol Succinate 50 mg [Toprol Xl 50 MG] 50 mg PO DAILY 12/27/16 [ History] Cholecalciferol (Vitamin D3) [Vitamin D] 1 tab PO DAILY 07/24/17 [History] Escitalopram Oxalate 10 mg [Lexapro 10 MG] 10 mg PO DAILY 07/25/17 [History] Hx Tetanus, Diphtheria Vaccination/Date Given: Yes Hx Influenza Vaccination/Date Given: Yes Hx Pneumococcal Vaccination/Date Given: Yes Travel Risk - International Travel Have you traveled outside of the country in past 3 weeks: No Have you or anyone close to you been diagnosed with or: No Do your reside in a community with a known COVID-19 case?: Yes If Yes where:: [place] - Coronavirus Screening Has patient experienced Coronavirus symptoms: No - Review of Systems Constitutional: No Symptoms Eyes: Eye Redness, Tearing, Foreign Body Sensation Ears, Nose, & Throat: No Symptoms Respiratory: No Symptoms Cardiac: No Symptoms Abdominal/Gastrointestinal: No Symptoms Genitourinary Symptoms: No Symptoms Musculoskeletal: No Symptoms Skin: No Symptoms Neurological: No Symptoms Psychological: No Symptoms Endocrine: No Symptoms Hematologic/Lymphatic: No Symptoms Immunological/Allergic: No Symptoms All Other Systems: Reviewed and Negative - Past Medical History Pertinent Past Medical History: Yes Neurological History: Migraines ENT History: No Pertinent History Cardiac History: Arrhythmia Respiratory History: COPD Endocrine Medical History: No Pertinent History Musculoskeletal History: Other GI Medical History: GERD, Other History: No Pertinent History Psycho-Social History: Anxiety Female Reproductive Disorders: Other Other Medical History: 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 - Past Surgical History Past Surgical History: Yes Neuro Surgical History: No Pertinent History Cardiac: Other Respiratory: No Pertinent History Gastrointestinal: No Pertinent History Genitourinary: No Pertinent History Musculoskeletal: Orthopedic Surgery Female Surgical History: Section, Other Other Surgical History: right arm and shoulder bicep muscle torn in half. left shoulder cystectomy. 2 tubal pregnancies. heart ablations - Social History Smoking Status: Former smoker How long have you smoked: 20years Exposure to second hand smoke: No Drug Use: none Patient Lives Alone: No - Physical Exam General Appearance: no apparent distress, alert, anxiety Eye Exam: right eye: normal inspection, left eye: PERRL, EOMI, conjunctival inflammation, foreign body (Obvious single piece of sand) Ears, Nose, Throat Exam: normal ENT inspection, moist mucous membranes Neck Exam: normal inspection, non-tender, supple, full range of motion Respiratory Exam: airway intact, No chest tenderness, No respiratory distress Gastrointestinal Exam: No tenderness Extremity Exam: normal inspection, normal range of motion, pelvis stable Neurologic: alert, oriented x 3, cooperative, web weaver II-XII nml as tested, normal mood/affect, nml cerebellar function, nml station & gait Skin Exam: normal color, warm, dry Lymphatic: No adenopathy SpO2 Interpretation: normal O2 Delivery: Room Air Procedures - Eye Procedure Timeout: Performed Tetracaine Drops Administered: Yes Eye FB Removal: removal w/ cotton swab, removal w/ needle Remaining Material after FB Removal: none Antibiotic Oinment/Drps Admin: left eye Progress: patient aracelis procedure well. No complications. Erythromycin ointment was placed into the left eye - Course Nursing assessment & vital signs reviewed: Yes Ordered Tests: Medication Summary Generic Name Dose Route Start Last Admin Trade Name Jun PRN Reason Stop Dose Admin Erythromycin 3.5 gm 11/09/19 23:23 Erythromycin 3.5 Gm Ophth. OP 11/09/19 23:24 STAT ONE Discontinued Medications Generic Name Dose Route Start Last Admin Trade Name Jun PRN Reason Stop Dose Admin Fluorescein Sodium Confirm 11/09/19 23:11 Amtks-P-Ltspe/Ful-Perry Administered 11/09/19 23:12 Dose 1 mg OP .STK-MED ONE Tetracaine HCl 4 ml 11/09/19 23:07 11/09/19 23:10 Tetracaine 0.5% Steri-Unit Tayla OP 11/09/19 23:08 4 ml STAT STA Administration Tetracaine HCl Confirm 11/09/19 23:09 Tetracaine 0.5% Steri-Unit Tayla Administered 11/09/19 23:10 Dose 4 ml OP .STK-MED ONE - Progress Progress: improved, pain not gone completely Counseled pt/family regarding: diagnosis, need for follow-up - Departure Departure Disposition: Home Clinical Impression: Foreign body of left eye, Corneal abrasion, left Condition: Stable Critical Care Time: No Referrals: JESSENIA SAENZ [Primary Care Provider] - Additional Instructions: Continue irrigating out your left eye 3-4 times a day after placement of erythromycin ointment. Follow-up with an brick loader in 2 days for reevaluation. Prescriptions: Hydrocodone/APAP 5-325 Tab^^^ [[place] 5-325 Tablet^^^] 1 tab PO Q8H PRN PRN #7 tablet MDD 3 PRN Reason: Pain Erythromycin Base 3.5 gm [Erythromycin 3.5 GM OPHTH.] 3.5 gm OP QID #1 tube
[2019-11-09] MEDS ORDERED: TETRACAINE 0.5% STERI-UNIT SOL OP STA (23:07)
[2019-11-09] MEDS ORDERED: TETRACAINE 0.5% STERI-UNIT SOL OP ONE (23:09)
[2019-11-09] MEDS ORDERED: Fluor-I-Strip/Ful-Flo OP ONE (23:11)
[2019-11-09] MEDS ORDERED: Erythromycin 3.5 GM OPHTH. OP ONE (23:23)
[2019-11-09] MEDS ORDERED: NORCO 5/325 MG PO ONE ×2 (23:24→23:33)
[2019-11-09] MEDS ORDERED: NORCO 5/325 MG ONE (23:38)
[2019-11-10 00:22] VITALS: BP 124/93; PULSE 86; O2SAT 95
== END 2019-11-10 00:22 | disposition home or self-care (01) ==
LOC: ED 22:50
DX: T15.82XA Foreign body in other and multiple parts of external eye, left eye, initial encounter (principal); T15.02XA Foreign body in cornea, left eye, initial encounter; S05.52XA Penetrating wound with foreign body of left eyeball, initial encounter; W22.8XXA Striking against or struck by other objects, initial encounter; H57.12 Ocular pain, left eye; Y93.89 Activity, other specified; Z79.899 Other long term (current) drug therapy; J44.9 Chronic obstructive pulmonary disease, unspecified; Z72.0 Tobacco use
CPT/HCPCS: 99283; A9270-GY

== ENCOUNTER 2019-12-25 13:21 | Emergency (ER) | payer MEDICAID, OTHER ==
[2019-12-25 13:36] VITALS: BP 132/86; PULSE 72; O2SAT 98
--- NOTE | 2019-12-25 13:55 | ERPHSYRPT ---
- History of Present Illness Time Seen by Provider: 12/25/19 13:40 Source: patient Exam Limitations: no limitations Patient Subjective Stated Complaint: pt here for an abcess to lower back for almost a month now, that started draining today Triage Nursing Assessment: pt walked in, has mask on, resp easy, skin w/d/p. has abcess to lower back with serous drainage noted Physician History: 59 years old female presented in the ER with chief complaint of lump on the low back for the last 4 to 5 days with progressive worsening. Patient reports she has this lump for more than a month and recently is increasing in size, was evaluated at primary care currently on Bactrim. Patient report improvement in the size pain and redness with antibiotics and almost half an hour prior to arrival she noted some discharge which was purulent with some blood stained. No active discharge at present. No fever or chills reported. Timing/Duration: day(s) (5), gradual onset, worse Quality: painful Severity: moderate Location: torso Possible Causes: no cause identified Associated Symptoms: swelling/mass/lumps, No fever Allergies/Adverse Reactions: venom-wasp [Wasp Venom] Allergy (Intermediate, Verified 12/25/19 13:36) air way swelling fluticasone propionate [From Advair Diskus] Adverse Reaction (Mild, Verified 12/25/19 13:36) mouth sores salmeterol xinafoate [From Advair Diskus] Adverse Reaction (Mild, Verified 12/25/19 13:36) mouth sores Home Medications: Cyclobenzaprine HCl [Flexeril] 10 mg PO HSPRN PRN 12/10/13 [History] Omeprazole [Prilosec] 40 mg PO DAILY 12/10/13 [History] Metoprolol Succinate 50 mg [Toprol Xl 50 MG] 50 mg PO DAILY 12/27/16 [History] Cholecalciferol (Vitamin D3) [Vitamin D] 1 tab PO DAILY 07/24/17 [History] Escitalopram Oxalate 10 mg [Lexapro 10 MG] 10 mg PO DAILY 07/25/17 [History] Smz/Tmp Ds Tablet [Bactrim Ds Tablet] 1 ea BID 12/25/19 [History] Hx Tetanus, Diphtheria Vaccination/Date Given: No Hx Influenza Vaccination/Date Given: No Hx Pneumococcal Vaccination/Date Given: Yes Immunizations Up to Date: Yes Travel Risk - International Travel Have you traveled outside of the country in past 3 weeks: No - Coronavirus Screening Are you exhibiting any of the following symptoms?: No Close contact with a COVID-19 positive Pt in past 14-21 Days: No - Review of Systems Constitutional: No Symptoms Eyes: No Symptoms Ears, Nose, & Throat: No Symptoms Respiratory: No Symptoms Cardiac: No Symptoms Abdominal/Gastrointestinal: No Symptoms Skin: Skin Lesions Neurological: No Symptoms Psychological: No Symptoms Endocrine: No Symptoms Hematologic/Lymphatic: No Symptoms - Past Medical History Pertinent Past Medical History: Yes Neurological History: Migraines ENT History: No Pertinent History Cardiac History: Arrhythmia Respiratory History: COPD Endocrine Medical History: No Pertinent History Musculoskeletal History: Other GI Medical History: GERD, Other History: No Pertinent History Psycho-Social History: Anxiety Female Reproductive Disorders: Other Other Medical History: 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 - Past Surgical History Past Surgical History: Yes Neuro Surgical History: No Pertinent History Cardiac: Other Respiratory: No Pertinent History Gastrointestinal: No Pertinent History Genitourinary: No Pertinent History Musculoskeletal: Orthopedic Surgery Female Surgical History: Section, Other Other Surgical History: right arm and shoulder bicep muscle torn in half,. left shoulder cystectomy. 2 tubal pregnancies. heart ablations - Social History Smoking Status: Former smoker How long have you smoked: 20years Exposure to second hand smoke: No Drug Use: none Patient Lives Alone: No - Female History Hx Last Menstrual Period: post Hx Now: No - Nursing Vital Signs Nursing Vital Signs: Initial Vital Signs Temperature 97.0 F 12/25/19 13:30 Pulse Rate 72 12/25/19 13:30 Respiratory Rate 18 12/25/19 13:30 Blood Pressure 132/86 12/25/19 13:30 O2 Sat by Pulse Oximetry 98 12/25/19 13:30 Pain Scale Pain Intensity 10 - Physical Exam General Appearance: no apparent distress Eye Exam: PERRL/EOMI Ears, Nose, Throat Exam: normal ENT inspection, pharynx normal Neck Exam: normal inspection, supple, full range of motion Respiratory Exam: normal breath sounds, lungs clear Cardiovascular Exam: regular rate/rhythm, normal heart sounds Back Exam: other (3 x 3 cm swelling with draining head. Minimally tender. Firm consistency.) Extremity Exam: normal inspection Neurologic Exam: alert, oriented x 3, cooperative SpO2 Interpretation: normal SpO2: 98 O2 Delivery: Room Air - Progress Progress: unchanged Progress Note: 12/25/19 13:58 Patient has draining infected sebaceous cyst. She is on antibiotic. She is advised to continue with antibiotics. Recommended outpatient follow-up for reevaluation and cyst with the sac removal once infection part is over. Discussed signs symptoms of worsening needing return to ER which she seemed understanding. Stable for discharge. Counseled pt/family regarding: diagnosis, need for follow-up - Departure Departure Disposition: Home Clinical Impression: Infected sebaceous cyst of skin Condition: Stable Critical Care Time: No Referrals: DOMINIQUE DAWSON [Primary Care Provider] - Follow Up with PCP/3 days Instructions: Epidermal Cyst (DC) Additional Instructions: Apply warm compresses. Continue with antibiotics. Take pain medications as needed. Follow-up with primary care for reevaluation. Return to ER for worsening pain swelling redness discharge/fever or chills.
== END 2019-12-25 14:21 | disposition home or self-care (01) ==
LOC: ED 13:21
DX: L72.3 Sebaceous cyst (principal)
CPT/HCPCS: 99283

== ENCOUNTER 2021-02-02 01:14 | Emergency (ER) | payer OTHER ==
[2021-02-02 07:06] LABS: INR 0.96 (0.8-3.0); PROTIME 11.3 SECONDS (9.4-12.5); PTT 33.7 SECONDS (25.1-36.5)
[2021-02-02 07:07] LABS: ALBUMIN 4.1 g/dL (3.5-5.0); BLOOD UREA NITROGEN 24 mg/dL (7-17); CHLORIDE 104 mmol/L (98-107); Calcium 9.5 mg/dL (8.4-10.2); Carbon Dioxide 27 mmol/L (22-30); Creatinine 1 0.65 mg/dL (0.52-1.04); EST GLOMERULAR FILTRATION RATE > 60.0 ML/MIN; Glucose 118 mg/dL (74-106); Potassium 3.9 mmol/L (3.5-5.1); SODIUM 140 mmol/L (137-145); Total Protein 6.8 g/dL (6.3-8.2)
[2021-02-02 07:08] LABS: ALKALINE PHOSPHATASE 39 U/L (38-126); ANION GAP 12.9 MEQ/L (5-15); SGOT/AST 24 U/L (14-36); SGPT/ALT 18 U/L (0-35)
[2021-02-02 07:09] LABS: Hemoglobin 13.4 gm/dl (12.0-16.0); Mean Cell Volume 90.3 fl (78-100); Mean Corpuscular Hemoglobin 28.8 pg (26-32); Mean Corpuscular Hgb Concent. 31.9 g/dl (32-36); Mean Platelet Volume 9.2 fl (7.5-11.0); Platelet Count 398 K/mm3 (150-450); Red Blood Count 4.65 M/mm3 (4.1-5.4); Red Cell Distribution Width 13.1 % (11.5-14.0); White Blood Count 10.1 K/mm3 (4.0-10.5)
--- NOTE | 2021-02-02 10:28 | XRAY ---
Indication: Hemoptysis. COPD. Comparison: December 27, 2016. Portable chest remains clear. Heart not enlarged with interval enlarging large hiatal hernia. Bony thorax intact.
== END 2021-02-02 04:26 | disposition home or self-care (01) ==
LOC: ED 01:14
DX: R04.2 Hemoptysis (principal); J44.9 Chronic obstructive pulmonary disease, unspecified
CPT/HCPCS: 36415; 71045; 80053; 85027; 85610; 85730

== ENCOUNTER 2021-08-28 06:22 | Day surgery (SDC) | payer OTHER ==
[2021-08-28] MEDS ORDERED: Lactated Ringers 1,000 ML IV SCH (06:30)
[2021-08-28] MEDS ORDERED: Lactated Ringers 1,000 ML IV ONE (06:52)
[2021-08-28] MEDS ORDERED: Xylocaine-Mpf 2% 5 Ml Vial ONE (07:53)
[2021-08-28] MEDS ORDERED: DIPRIVAN 200 MG/20 ML IV ONE ×2 (07:53→08:22)
[2021-08-28] MEDS ORDERED: Versed 2 MG/2 ML Injection ONE (07:54)
[2021-08-28 09:18] VITALS: BP 118/74; PULSE 68; O2SAT 94
--- NOTE | 2021-08-28 10:04 | OP ---
SURGERY DATE/TIME: 08/28/2021 0807 PREOPERATIVE DIAGNOSIS: Previous history of colon polyps. POSTOPERATIVE DIAGNOSIS: Normal colon. PROCEDURE: Colonoscopy. SURGEON: Dr. Leach. ANESTHESIA: MAC. Medications given by anesthesia department. HISTORY: The patient is a 61-year-old white female presenting now for colonoscopic evaluation. The patient was appraised of the risks of the procedure including the risk of perforation, phlebitis, untoward reaction to medication, bleeding and missed lesions. The patient verbalized her understanding and desired to have the procedure performed. DESCRIPTION OF PROCEDURE: The patient was given the medications by the anesthesia department. She had continuous pulse oximetry, ECG monitoring, intermittent blood pressure monitoring during the examination. She was placed in the left lateral decubitus position. A digital rectal examination was performed and revealed external hemorrhoids, no masses and a normal anal sphincter tone. The flexible Olympus pediatric colonoscope was used to intubate the rectum. A view of the colon was developed sequentially to the cecum. Upon insertion and withdrawal, including a retroflex view in the rectum, no mucosal lesions were encountered. The scope was removed from the patient who tolerated the procedure well and was sent back to OP recovery in good condition. The prep showed a fair amount of liquid stool which was suctioned clear as much as possible to obtain a fairly clear view of the colon.
== END 2021-08-28 09:30 | disposition home or self-care (01) ==
LOC: SDC 06:22
PROVIDERS: ATTEND Family Medicine
DX: Z09 Encounter for follow-up examination after completed treatment for conditions other than malignant neoplasm (principal); Z86.010 Personal history of colon polyps; K64.4 Residual hemorrhoidal skin tags
CPT/HCPCS: 93005; J2250; J2704

== ENCOUNTER 2021-09-06 16:23 | Emergency (ER) | payer OTHER ==
[2021-09-06] MEDS ORDERED: XYLOCAINE 1% HCL 20 ML MDV IJ ONE (16:24)
--- NOTE | 2021-09-06 16:31 | ERPHSYRPT ---
- History of Present Illness Time Seen by Provider: 09/06/21 16:30 Source: patient Exam Limitations: no limitations Physician History: This is a right-handed white female who presents with redness and tenderness of her left index finger dorsal aspect proximal to her nailbed. She feels as though the redness is getting worse. She did not injure it as far she can recall. She feels there may be infection and wants to be started on antibiotics. Occurred: other (2 weeks) Method of Injury: other (No injury) Quality: constant, burning (Mild) Severity of Pain-Max: mild Severity of Pain-Current: mild Extremities Pain Location: 2nd finger: left Modifying Factors: Improves With: nothing Associated Symptoms: none Allergies/Adverse Reactions: venom-wasp [Wasp Venom] Allergy (Intermediate, Verified 09/06/21 16:40) air way swelling fluticasone propionate [From Advair Diskus] Adverse Reaction (Mild, Verified 09/06/21 16:40) mouth sores salmeterol xinafoate [From Advair Diskus] Adverse Reaction (Mild, Verified 09/06/21 16:40) mouth sores Home Medications: Omeprazole [Prilosec] 40 mg PO DAILY 12/10/13 [History] Metoprolol Succinate 50 mg [Toprol Xl 50 MG] 50 mg PO DAILY 12/27/16 [History] Cholecalciferol (Vitamin D3) [Vitamin D] 1 tab PO DAILY 07/24/17 [History] Diltiazem HCl [Cardizem] 30 mg PO BID 08/22/21 [History] Duloxetine HCl [Cymbalta] 20 - 40 mg PO DAILY 08/22/21 [History] Pravastatin Sodium 40 mg PO HS 08/22/21 [History] Pregabalin [Lyrica 150Mg] 150 mg PO BID 08/22/21 [History] Tizanidine HCl 4 mg [Zanaflex 4 MG] 4 mg PO BIDPRN PRN 08/22/21 [History] Hx Tetanus, Diphtheria Vaccination/Date Given: No Hx Influenza Vaccination/Date Given: No Hx Pneumococcal Vaccination/Date Given: Yes Travel Risk - International Travel Have you traveled outside of the country in past 3 weeks: No - Coronavirus Screening Are you exhibiting any of the following symptoms?: No Close contact with a COVID-19 positive Pt in past 14-21 Days: No - Review of Systems Constitutional: No Symptoms Eyes: No Symptoms Ears, Nose, & Throat: No Symptoms Respiratory: No Symptoms Cardiac: No Symptoms Abdominal/Gastrointestinal: No Symptoms Genitourinary Symptoms: No Symptoms Musculoskeletal: No Symptoms Skin: Cellulitis (Mild localized dorsal aspect proximal to nailbed index finger on left side) Neurological: No Symptoms Psychological: No Symptoms Endocrine: No Symptoms Hematologic/Lymphatic: No Symptoms Immunological/Allergic: No Symptoms All Other Systems: Reviewed and Negative - Past Medical History Pertinent Past Medical History: Yes Neurological History: Migraines ENT History: No Pertinent History Cardiac History: Arrhythmia, High Cholesterol Respiratory History: COPD Endocrine Medical History: No Pertinent History Musculoskeletal History: Other GI Medical History: GERD, Other History: No Pertinent History Psycho-Social History: Anxiety Female Reproductive Disorders: Other Other Medical History: 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 - Past Surgical History Past Surgical History: Yes Neuro Surgical History: No Pertinent History Cardiac: Other Respiratory: No Pertinent History Gastrointestinal: No Pertinent History Genitourinary: No Pertinent History Musculoskeletal: Orthopedic Surgery Female Surgical History: Section, Other Other Surgical History: right arm and shoulder bicep muscle torn in half,. left shoulder cystectomy. 2 tubal pregnancies. heart ablations - Social History Smoking Status: Former smoker How long have you smoked: 20years Exposure to second hand smoke: No Drug Use: none Patient Lives Alone: No - Nursing Vital Signs Nursing Vital Signs: Initial Vital Signs Pulse Rate 95 H 09/06/21 16:30 Blood Pressure 122/63 09/06/21 16:30 O2 Sat by Pulse Oximetry 96 09/06/21 16:30 Pain Scale Pain Intensity 6 - Physical Exam General Appearance: no apparent distress, alert, anxiety Eyes, Ears, Nose, Throat Exam: normal ENT inspection, moist mucous membranes Neck Exam: normal inspection, non-tender, supple, full range of motion Cardiovascular/Respiratory Exam: chest non-tender, no respiratory distress Abdominal Exam: non-tender Back Exam: normal inspection, normal range of motion, CVA tenderness Shoulder Exam: normal inspection, non-tender, no evidence of injury, normal ROM Elbow/Forearm Exam: normal inspection, non-tender, no evidence of injury, normal ROM Wrist Exam: normal inspection, non-tender, no evidence of injury, normal ROM Hand Exam: soft tissue tenderness (Localized cellulitis left index finger dorsal aspect with induration and no abscess. No expressible pus present. No proximal streaking.), swelling Neuro/Tendon Exam: normal sensation, normal motor functions, normal tendon functions, responds to pain, no evidence tendon injury Mental Status Exam: alert, oriented x 3, cooperative Skin Exam: other SpO2 Interpretation: normal (The above) O2 Delivery: Room Air - Course Nursing assessment & vital signs reviewed: Yes Ordered Tests: Medication Summary Discontinued Medications Generic Name Dose Route Start Last Admin Trade Name Freq PRN Reason Stop Dose Admin Ceftriaxone Sodium 1,000 mg 09/06/21 17:12 Ceftriaxone Sodium 1000 Mg Inj Vial IM 09/06/21 17:13 STAT ONE - Progress Progress: unchanged Counseled pt/family regarding: diagnosis, need for follow-up - Departure Departure Disposition: Home Clinical Impression: Cellulitis, finger Condition: Stable Critical Care Time: No Referrals: AMBER MUNIZ MD [Primary Care Provider] - Follow up/PCP as directed Additional Instructions: Warm soaks with warm water and Epson salts twice a day. Use Tylenol and ibuprofen for pain control. Follow-up with your primary care physician on 09/07/2021 to make arrangements for further evaluation and management. Turn to the emergency department if symptoms worsen. Prescriptions: Smz/Tmp Ds Tablet [Bactrim Ds Tablet] 1 udtab PO BID #14 tablet
[2021-09-06] MEDS ORDERED: Rocephin 1000 MG INJ ONE (17:12)
[2021-09-06] MEDS: Rocephin 1000 MG INJ IM ONE (17:15)
[2021-09-06 17:20] VITALS: BP 110/63; PULSE 76; O2SAT 98
== END 2021-09-06 17:30 | disposition home or self-care (01) ==
LOC: ED 16:23
DX: L03.012 Cellulitis of left finger (principal); M79.645 Pain in left finger(s); E78.5 Hyperlipidemia, unspecified; J44.9 Chronic obstructive pulmonary disease, unspecified; K21.9 Gastro-esophageal reflux disease without esophagitis; Z79.899 Other long term (current) drug therapy
CPT/HCPCS: 96372; 99283; J0696

== ENCOUNTER 2021-12-04 05:55 | Day surgery (SDC) | payer OTHER ==
[2021-12-04] MEDS ORDERED: Lactated Ringers 1,000 ML IV SCH (06:30)
[2021-12-04] MEDS ORDERED: XYLOCAINE 2%/Epi 1:200000 20ML VIAL MPF ONE (07:29)
[2021-12-04] MEDS ORDERED: DIPRIVAN 200 MG/20 ML IV ONE ×2 (07:29→07:46)
[2021-12-04 08:41] VITALS: BP 125/57; PULSE 58; O2SAT 94
--- NOTE | 2021-12-04 17:06 | OP ---
SURGERY DATE: 12/04/2021 SURGERY TIME: 731 PREOPERATIVE DIAGNOSIS: 1. ABDOMINAL PAIN AND BLOATING. POSTOPERATIVE DIAGNOSIS: 1. HIATAL HERNIA. 2. MODERATE GASTRITIS. PROCEDURE: 1. Esophagogastroduodenoscopy with biopsy. SURGEON: Dr. Leach. ANESTHESIA: MAC. Medication given by the Anesthesia Department. BRIEF HISTORY: The patient is a 61 y/o WF patient who reports she has been having problems with mid abdominal pain. She reports she has bloating after eating which she does not take any medication to help with this. She does report that she does take omeprazole on a regular basis otherwise. The patient was felt to need endoscopic evaluation. She was appraised of the risks of the procedure including the risk of perforation, phlebitis, untoward reaction to medication, bleeding, and missed lesions. The patient verbalized her understanding and desired to have the procedure performed. DESCRIPTION OF PROCEDURE: The patient was given the medications by the Anesthesia Department. She had continuous pulse oximetry, ECG monitoring, and intermittent BP monitoring during the examination. She was placed in the left lateral decubitus position. A bite block was placed and the flexible Olympus gastroscope was used to intubate the oropharynx. The scope was introduced in the esophagus with ease. It appeared to be normal to the esophagogastric junction where there was the appearance of hiatal hernia. The scope was introduced in the stomach where normal gastric rugal folds were seen and these distended nicely with the insufflation of air. The scope was passed along the greater curvature of the stomach to the antrum. The pylorus was encountered and intubated. The duodenum was inspected and found to be normal. The scope was withdrawn towards the stomach. Again, a retroflex view was obtained of the lesser curvature, fundus, and cardia regions of the stomach and these appeared to be essentially normal other than the appearance of hiatal hernia. The scope was then redirected towards the gastric antrum where biopsies were obtained to rule out the presence of H-pylori type organisms. The scope was then removed from the patient who tolerated the procedure well and was sent back to outpatient recovery in good condition.
== END 2021-12-04 08:45 | disposition home or self-care (01) ==
LOC: SDC 05:55
PROVIDERS: ATTEND Family Medicine
DX: K44.9 Diaphragmatic hernia without obstruction or gangrene (principal); R10.84 Generalized abdominal pain; R14.0 Abdominal distension (gaseous); K29.70 Gastritis, unspecified, without bleeding
CPT/HCPCS: J2704

== ENCOUNTER 2023-03-26 20:58 | Emergency (ER) | payer OTHER ==
[2023-03-26 21:15] VITALS: RESP 18; TEMP 99
[2023-03-26 21:54] LABS: Group A Strep NOT DETECTED (NEGATIVE)
[2023-03-26 22:06] LABS: INFLUENZA A NEGATIVE (NEGATIVE); INFLUENZA B NEGATIVE (NEGATIVE); RESPIRATORY SYNCTIAL VIRUS NEGATIVE (NEGATIVE)
[2023-03-26 22:07] LABS: SARS-CoV-2 Xpert Express POSITIVE (NEGATIVE)
[2023-03-26] MEDS ORDERED: Sodium Chloride 0.9% 1000 ML 1,000 ML IV STA (22:10)
[2023-03-26] MEDS ORDERED: TYLENOL 325 MG PO ONE (22:10)
[2023-03-26] MEDS ORDERED: DECADRON 10MG INJ. IV ONE (22:11)
[2023-03-26] MEDS ORDERED: DECADRON 10MG INJ. ONE (22:14)
[2023-03-26] MEDS ORDERED: Sodium Chloride 0.9% 1000 ML 1,000 ML ONE (22:14)
[2023-03-26] MEDS ORDERED: TYLENOL 325 MG ONE (22:14)
[2023-03-26 22:16] LABS: Appearance Clear (Clear); Bacteria None Seen /HPF (None Seen); Bilirubin Negative (Negative); Blood Negative (Negative); Epithelial Cells None Seen /HPF (None Seen); Glucose, Urine Negative (Negative); Hyaline Casts NONE SEEN /LPF (0-2); Ketones Negative (Negative); Leukocyte Esterase Moderate (Negative); Nitrite Negative (Negative); Protein,Urine Dip Trace (Negative); RBC 0-2 /HPF (0-5); Specific Gravity 1.025 (1.005-1.030); WBC 51-100 /HPF (0-5)
[2023-03-26 22:32] LABS: ADD URINE CULTURE? YES (NO)
--- NOTE | 2023-03-26 22:38 | ERPHSYRPT ---
- History of Present Illness Time Seen by Provider: 03/26/23 21:10 Source: patient Patient Subjective Stated Complaint: productive cough, body aches, L ear ache, headache, sore throat since friday Triage Nursing Assessment: pt ambulatory to bed by self with steady gait, pt alert and oriented x3, skin pwd, pt c/o body aches, productive cough, L ear ache, headache, and sorethroat since friday. pt had positive covid test today at home Physician History: Patient is a 62-year-old female presents to our ED for evaluation of cough, body aches, sore throat, left ear pressure. Patient was COVID-positive at home. Patient concerned that she may require antibiotics. No chest pain. No shortness of breath. No nausea vomiting or diaphoresis. Patient took Tylenol at 3 PM today. Tylenol improves her symptoms. Patient voices no other complaints or concerns at this time. Portions of this note were created with voice recognition technology. There may be grammatical, spelling, punctuation or sound alike errors Timing/Duration: today Severity: moderate Modifying Factors: Improves With: nothing Associated Symptoms: cough Allergies/Adverse Reactions: venom-wasp [Wasp Venom] Allergy (Intermediate, Verified 03/26/23 21:07) air way swelling fluticasone propionate [From Advair Diskus] Adverse Reaction (Mild, Verified 03/26/23 21:07) mouth sores salmeterol xinafoate [From Advair Diskus] Adverse Reaction (Mild, Verified 03/26/23 21:07) mouth sores Home Medications: Omeprazole [Prilosec] 80 mg PO DAILY 12/10/13 [History] Metoprolol Succinate 50 mg [Toprol Xl 50 MG] 50 mg PO DAILY 12/27/16 [History] Duloxetine HCl [Cymbalta] 20 - 40 mg PO DAILY 08/22/21 [History] Pregabalin [Lyrica 150Mg] 150 mg PO BID 08/22/21 [History] dilTIAZem HCL [Cardizem] 30 mg PO BID 08/22/21 [History] Pravastatin Sodium 40 mg PO DAILY 11/29/21 [History] Hx Tetanus, Diphtheria Vaccination/Date Given: No Hx Influenza Vaccination/Date Given: Yes Hx Pneumococcal Vaccination/Date Given: Yes Immunizations Up to Date: Yes Travel Risk - International Travel Have you traveled outside of the country in past 3 weeks: No - Coronavirus Screening Are you exhibiting any of the following symptoms?: Yes Symptoms: Cough: New Onset, Headaches/Body Aches/Fatigue Close contact with a COVID-19 positive Pt in past 14-21 Days: No - Vaccine Status Have you recieved a Covid-19 vaccination: Yes Vehicle Glass Technician: Moderna - Vaccination Dates Date of 2cond Vaccination (if applicable): unk - Review of Systems Constitutional: No Symptoms, No Fever, No Chills Eyes: No Symptoms Ears, Nose, & Throat: No Symptoms Respiratory: No Symptoms, No Cough, No Dyspnea Cardiac: No Symptoms, No Chest Pain, No Edema, No Syncope Abdominal/Gastrointestinal: No Symptoms, No Abdominal Pain, No Nausea, No Vomiting, No Diarrhea Genitourinary Symptoms: No Symptoms, No Dysuria Musculoskeletal: No Symptoms, No Back Pain, No Neck Pain Skin: No Symptoms, No Rash Neurological: No Symptoms, No Dizziness, No Focal Weakness, No Sensory Changes Psychological: No Symptoms Endocrine: No Symptoms Hematologic/Lymphatic: No Symptoms Immunological/Allergic: No Symptoms All Other Systems: Reviewed and Negative - Past Medical History Pertinent Past Medical History: Yes Neurological History: Migraines ENT History: No Pertinent History Cardiac History: Arrhythmia, High Cholesterol Respiratory History: COPD Endocrine Medical History: No Pertinent History Musculoskeletal History: Other GI Medical History: GERD, Other History: No Pertinent History Psycho-Social History: Anxiety Female Reproductive Disorders: Other Other Medical History: 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 - Past Surgical History Past Surgical History: Yes Neuro Surgical History: No Pertinent History Cardiac: Other Respiratory: No Pertinent History Gastrointestinal: No Pertinent History Genitourinary: No Pertinent History Musculoskeletal: Orthopedic Surgery Female Surgical History: Section, Other Other Surgical History: right arm and shoulder bicep muscle torn in half,. left shoulder cystectomy. 2 tubal pregnancies. heart ablations - Social History Smoking Status: Former smoker How long have you smoked: 20years Exposure to second hand smoke: No Drug Use: none Patient Lives Alone: No - Nursing Vital Signs Nursing Vital Signs: Initial Vital Signs Pulse Rate 113 H 03/26/23 21:07 Respiratory Rate 16 03/26/23 21:07 Blood Pressure 91/67 03/26/23 21:07 O2 Sat by Pulse Oximetry 94 L 03/26/23 21:07 Pain Scale Pain Intensity 5 - Physical Exam General Appearance: no apparent distress, alert Eye Exam: PERRL/EOMI, eyes nml inspection Ears, Nose, Throat Exam: normal ENT inspection, TMs normal, pharynx normal, moist mucous membranes, other (Both ears are unremarkable. No signs of infection. No otitis media or otitis externa. No mastoid pain or tenderness.) Neck Exam: normal inspection, non-tender, supple, full range of motion Respiratory Exam: normal breath sounds, lungs clear, airway intact, No respiratory distress Cardiovascular Exam: regular rate/rhythm, normal heart sounds, normal peripheral pulses, other (Lungs are clear. Patient has an occasional cough. No respiratory distress. Normal oxygenation. No tachypnea) Gastrointestinal/Abdomen Exam: soft, normal bowel sounds, No tenderness, No mass Back Exam: normal inspection, normal range of motion, No CVA tenderness, No vertebral tenderness Extremity Exam: normal inspection, normal range of motion, pelvis stable Neurologic Exam: alert, oriented x 3, cooperative, normal mood/affect, nml cerebellar function, nml station & gait, sensation nml, No motor deficits Skin Exam: normal color, warm, dry, No rash Lymphatic Exam: No adenopathy SpO2 Interpretation: normal SpO2: 95 O2 Delivery: Room Air - Course Nursing assessment & vital signs reviewed: Yes Ordered Tests: Active Orders 24 hr Category Date Time Status IV Insertion STAT Care 03/26/23 22:10 Active CULTURE,URINE Stat Lab 03/26/23 21:39 Received UA W/RFX UR CULTURE Stat Lab 03/26/23 21:39 Completed Medication Summary Discontinued Medications Generic Name Dose Route Start Last Admin Trade Name Jun PRN Reason Stop Dose Admin Acetaminophen 975 mg 03/26/23 22:10 03/26/23 22:17 Acetaminophen 325 Mg Tablet PO 03/26/23 22:11 975 mg STAT ONE Administration Acetaminophen Confirm 03/26/23 22:14 Acetaminophen 325 Mg Tablet Administered 03/26/23 22:15 Dose 975 mg .ROUTE .STK-MED ONE Dexamethasone Sodium Phosphate 6 mg 03/26/23 22:11 03/26/23 22:17 Dexamethasone Sod Phosphate 10 Mg/Ml IV 03/26/23 22:12 6 mg STAT ONE Administration Dexamethasone Sodium Phosphate Confirm 03/26/23 22:14 Dexamethasone Sod Phosphate 10 Mg/Ml Administered 03/26/23 22:15 Dose 10 mg .ROUTE .STK-MED ONE Sodium Chloride 1,000 mls @ 999 mls/hr 03/26/23 22:10 03/26/23 23:21 Sodium Chloride 0.9% 1000 Ml IV 03/26/23 23:10 Infused .Q1H1M STA Infusion Sodium Chloride Confirm 03/26/23 22:14 Sodium Chloride 0.9% 1000 Ml Administered 03/26/23 22:15 Dose 1,000 mls @ ud .ROUTE .STK-MED ONE Nitrofurantoin Macrocrystals 100 mg 03/27/23 00:08 03/27/23 00:12 Nitrofurantoin Macro 100 Mg Capsule PO 03/27/23 00:09 100 mg STAT ONE Administration Nitrofurantoin Macrocrystals Confirm 03/27/23 00:12 Nitrofurantoin Macro 100 Mg Capsule Administered 03/27/23 00:13 Dose 100 mg .ROUTE .STK-MED ONE Lab/Rad Data: Laboratory Results 03/26/23 03/26/23 Range/Units 21:39 21:23 Urine Color Yellow (Yellow) Urine Appearance Clear (Clear) Urine pH 7.0 (4.6-8.0) Ur Specific [place] 1.025 (1.005-1.030) Urine Protein Trace A (Negative) Urine Glucose (UA) Negative (Negative) mg/dL Urine Ketones Negative (Negative) Urine Blood Negative (Negative) Urine Nitrite Negative (Negative) Urine Bilirubin Negative (Negative) Urine Urobilinogen 1.0 A (0.2) mg/dL Ur Leukocyte Esterase Moderate A (Negative) U Hyaline Cast (Auto) NONE SEEN (0-2) /LPF Urine Microscopic RBC 0-2 (0-5) /HPF Urine Microscopic WBC 51-100 A (0-5) /HPF Ur Epithelial Cells None Seen (None Seen) /HPF Urine Bacteria None Seen (None Seen) /HPF Urine Culture Reflexed YES (NO) Influenza Type A Ag NEGATIVE (NEGATIVE) Influenza Type B Ag NEGATIVE (NEGATIVE) RSV (PCR) NEGATIVE (NEGATIVE) SARS-CoV-2 (PCR) POSITIVE A (NEGATIVE) Group A Strep Antibody NOT DETECTED (NEGATIVE) - Progress Progress: improved Progress Note: Patient is a 62-year-old female presents to our ED with a 1 day history of cough body aches left ear pain and sore throat. No chest pain or shortness of breath. No nausea vomiting or diaphoresis. Patient tested COVID-positive at home. Patient presented to our ED as she was concerned that she may need antibiotics. Physical exam reveals normal ears. No obvious pharyngitis. Lungs are clear. No respiratory distress no tachypnea. Normal oxygenation. Mild diffuse body aches. COVID positivity confirmed. Rapid strep negative. RSV influenza negative. Urinalysis reveals urinary tract infection. Patient received an oral dose of Macrobid in our ED. Patient given a dose of Tylenol for comfort as this improve patient's symptoms when she took Tylenol today at 3 PM. Patient received a dose of Decadron to help combat the symptoms of the COVID-19 virus. Patient was marginally tachycardic upon my examination. Heart rate was approximately 1 10-1 14. Patient exhibited no cardiovascular distress otherwise. Patient states her p.o. had gone down. She has not been eating and drinking as she normally due to feeling unwell. Patient received a liter of normal saline. IV fluids resolved patient's tachycardia. Patient reassessed. She feels significantly better. Patient resting comfortably. Vitals stable. Patient states she is ready for discharge. A prescription for Macrobid forwarded to patient's pharmacy. Patient voices no other complaints or concerns at this time. Patient agrees to follow-up with her primary care doctor within 48 hours for reevaluation. Patient voices no other complaints. Portions of this note were created with voice recognition technology. There may be grammatical, spelling, punctuation or sound alike errors Complexity of problems addressed as moderate acute complicated No critical care time Complexity of data reviewed and analyzed is moderate. Test ordered. Results reviewed and clinically correlated with patient's history and physical examination. Urinalysis independently reviewed by Dr. Lay. COVID positive correlated with patient's symptomology. Patient experiencing viral syndrome from COVID-19 viral infection. Risk of complication or risk morbidity/mortality patient management is moderate. Patient observed to have a urinary tract infection in our ED. Patient received an oral dose of Macrobid in our ED. A prescription for the same was forwarded to patient's pharmacy. Urine culture is pending Patient discharged home. Vital stable. Tachycardia resolved. Time spent to discharge patient approximately 15 minutes. Plan of care established for shared decision making. No social determinants of health present impede follow-up. Portions of this note were created with voice recognition technology. There may be grammatical, spelling, punctuation or sound alike errors 03/27/23 00:21 Counseled pt/family regarding: lab results, diagnosis, need for follow-up - Departure Departure Disposition: Home Clinical Impression: COVID-19, Viral syndrome, Urinary tract infection, Dehydration, Tachycardia Condition: Stable Critical Care Time: No Referrals: AMBER MUNIZ MD [Primary Care Provider] - Follow up/PCP as directed Additional Instructions: Discharge/Care Plan COLIN CUNHA was seen on 03/27/23 in the Emergency Room. The patient was counseled regarding Diagnosis,Lab results, Imaging studies, need for follow up and when to return to the Emergency Room. Prescriptions given: Discharge Note I have spoken with the patient and/or caregivers. I have explained the patient's condition, diagnosis and treatment plan based on the information available to me at this time. I have answered the patient's and/or caregiver's questions and addressed any concerns. The patient and/or caregivers have as good understanding of the patient's diagnosis, condition and treatment plan as can be expected at this point. The vital signs have been stable. The patient's condition is stable and appropriate for discharge from the emergency department. The patient will pursue further outpatient evaluation with the primary care physician or other designated or consulting physician as outlined in the discharge instructions. The patient and/or caregivers are agreeable to this plan of care and follow-up instructions have been explained in detail. The patient and/or caregivers have received these instruction. The patient/and or caregivers are aware that any significant change in condition or worsening of symptoms should prompt an immediate return to this or the closest emergency department or call 911. Prescriptions: Nitrofurantoin Macro 100 mg [Macrobid 100MG Capsule] 100 mg PO BID 7 Days #14 cap
[2023-03-27 00:04] VITALS: BP 122/72; PULSE 96
[2023-03-27] MEDS ORDERED: Macrobid 100MG Capsule PO ONE (00:08)
[2023-03-27] MEDS ORDERED: Macrobid 100MG Capsule ONE (00:12)
[2023-03-27 00:17] VITALS: O2SAT 95
== END 2023-03-27 00:29 | disposition home or self-care (01) ==
LOC: ED 20:58
DX: U07.1 COVID-19 (principal); N39.0 Urinary tract infection, site not specified; E86.0 Dehydration; R00.0 Tachycardia, unspecified; R05.9 Cough, unspecified; M79.10 Myalgia, unspecified site; J02.9 Acute pharyngitis, unspecified; E78.5 Hyperlipidemia, unspecified; Z79.899 Other long term (current) drug therapy
CPT/HCPCS: 0241U; 36000; 81001; 87086; 87651; 96360; 96374; 99284; J1100; A9270-GY

== ENCOUNTER 2023-03-31 21:12 | Emergency (ER) | payer OTHER ==
--- NOTE | 2023-03-31 21:17 | ERPHSYRPT ---
- History of Present Illness Time Seen by Provider: 03/31/23 21:17 Historian: patient Exam Limitations: no limitations Physician History: This is a 62-year-old white female patient who was seen in our emergency department on 03/26/2023 and diagnosed with COVID-19 infection as well as a urinary tract infection. Patient has chronic intermittent constipation issues. 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 In the last several days patient feels as though she is becoming more bloated and is having some abdominal pain. It is generalized. Patient states that she has used MiraLAX as well as magnesium citrate without any benefit. She has not used stool softeners, milk of magnesia, suppositories or enemas. There is been no nausea or vomiting. Patient is not on any new medications. She denies using narcotics. Patient has a history of gastroesophageal reflux disease, hypertension, hyperlipidemia, arrhythmia, and COPD Timing/Duration: worse (Chronic), other Quality: cramping (Generalized) Abdominal Pain Onset Location: generalized abdomen (Cramping) Pain Radiation: no radiation Severity of Pain-Max: mild (To moderate) Severity of Pain-Current: mild (To moderate) Modifying Factors: Worsens With: vomiting Associated Symptoms: other (Generalized mild abdominal pain and constipation), No nausea, No vomiting Previous symptoms: same symptoms as today, recently seen Allergies/Adverse Reactions: venom-wasp [Wasp Venom] Allergy (Intermediate, Verified 03/31/23 21:34) air way swelling fluticasone propionate [From Advair Diskus] Adverse Reaction (Mild, Verified 03/31/23 21:34) mouth sores salmeterol xinafoate [From Advair Diskus] Adverse Reaction (Mild, Verified 03/31/23 21:34) mouth sores Home Medications: Omeprazole [Prilosec] 80 mg PO DAILY 12/10/13 [History] Metoprolol Succinate 50 mg [Toprol Xl 50 MG] 50 mg PO DAILY 12/27/16 [History] Duloxetine HCl [Cymbalta] 20 - 40 mg PO DAILY 08/22/21 [History] Pregabalin [Lyrica 150Mg] 150 mg PO BID 08/22/21 [History] dilTIAZem HCL [Cardizem] 30 mg PO BID 08/22/21 [History] Pravastatin Sodium 40 mg PO DAILY 11/29/21 [History] Hx Tetanus, Diphtheria Vaccination/Date Given: No Hx Influenza Vaccination/Date Given: Yes Hx Pneumococcal Vaccination/Date Given: Yes Travel Risk - International Travel Have you traveled outside of the country in past 3 weeks: No - Coronavirus Screening Are you exhibiting any of the following symptoms?: No Close contact with a COVID-19 positive Pt in past 14-21 Days: No - Vaccine Status Have you recieved a Covid-19 vaccination: Yes Pile Driver Operator Helper: Moderna - Vaccination Dates Date of 2cond Vaccination (if applicable): unk - Review of Systems Constitutional: No Symptoms Eyes: No Symptoms Ears, Nose, & Throat: No Symptoms Respiratory: No Symptoms Abdominal/Gastrointestinal: Abdominal Pain, Constipation Genitourinary Symptoms: No Symptoms Musculoskeletal: No Symptoms Skin: No Symptoms Neurological: No Symptoms Psychological: No Symptoms Endocrine: No Symptoms Hematologic/Lymphatic: No Symptoms Immunological/Allergic: No Symptoms All Other Systems: Reviewed and Negative - Past Medical History Pertinent Past Medical History: Yes Neurological History: Migraines ENT History: No Pertinent History Cardiac History: Arrhythmia, High Cholesterol Respiratory History: COPD Endocrine Medical History: No Pertinent History Musculoskeletal History: Other GI Medical History: GERD, Other History: No Pertinent History Psycho-Social History: Anxiety Female Reproductive Disorders: Other Other Medical History: 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 - Past Surgical History Past Surgical History: Yes Neuro Surgical History: No Pertinent History Cardiac: Other Respiratory: No Pertinent History Gastrointestinal: No Pertinent History Genitourinary: No Pertinent History Musculoskeletal: Orthopedic Surgery Female Surgical History: Section, Other Other Surgical History: right arm and shoulder bicep muscle torn in half,. left shoulder cystectomy. 2 tubal pregnancies. heart ablations - Social History Smoking Status: Former smoker How long have you smoked: 20years Exposure to second hand smoke: No Drug Use: none Patient Lives Alone: No - Nursing Vital Signs Nursing Vital Signs: Initial Vital Signs Pulse Rate 101 H 03/31/23 21:34 Respiratory Rate 18 03/31/23 21:34 Blood Pressure 130/73 03/31/23 21:34 O2 Sat by Pulse Oximetry 97 03/31/23 21:34 Pain Scale Pain Intensity 4 - Physical Exam General Appearance: no apparent distress, alert, anxiety Eye Exam: PERRL/EOMI, eyes nml inspection Ears, Nose, Throat Exam: normal ENT inspection, moist mucous membranes Neck Exam: normal inspection, non-tender, supple, full range of motion Respiratory Exam: normal breath sounds, lungs clear, airway intact, No chest tenderness, No respiratory distress Cardiovascular Exam: regular rate/rhythm, normal heart sounds, normal peripheral pulses Gastrointestinal/Abdomen Exam: soft, normal bowel sounds, tenderness (Mild diffuse), guarding (Mild diffuse to palpation), No pulsatile mass, No rebound Pelvic Exam: not done Rectal Exam: not done Back Exam: normal inspection, normal range of motion, No CVA tenderness, No vertebral tenderness Extremity Exam: normal inspection, normal range of motion, pelvis stable Neurologic Exam: alert, oriented x 3, cooperative, machine tool designer II-XII nml as tested, normal mood/affect, nml cerebellar function, nml station & gait, sensation nml Skin Exam: normal color, warm, dry Lymphatic Exam: No adenopathy SpO2 Interpretation: normal O2 Delivery: Room Air - Course Nursing assessment & vital signs reviewed: Yes Ordered Tests: Active Orders 24 hr Category Date Time Status IV Insertion STAT Care 03/31/23 23:16 Active ABDOMEN AND PELVIS W CONTRAST [CT] Stat Exams 03/31/23 23:23 Completed ABDOMEN AND PELVIS W/0 CONTRAS [CT] Stat Exams 03/31/23 21:40 Completed CHEST WITHOUT CONTRAST [CT] Stat Exams 03/31/23 23:48 Completed BMP Stat Lab 03/31/23 23:25 Completed CBC W DIFF Stat Lab 03/31/23 23:16 Completed Medication Summary Generic Name Dose Route Start Last Admin Trade Name Jun PRN Reason Stop Dose Admin Sodium Chloride 1,000 mls @ 100 mls/hr 03/31/23 23:30 03/31/23 23:24 Sodium Chloride 0.9% 1000 Ml IV 04/30/23 23:29 100 mls/hr .Q10H BERNARD Administration Lab/Rad Data: Laboratory Result Diagrams 03/31/23 23:16 03/31/23 23:25 Laboratory Results 03/31/23 03/31/23 Range/Units 23:25 23:16 WBC 18.4 H (4.0-10.5) x10^3/uL RBC 4.20 (4.1-5.4) x10^6/uL Hgb 11.5 L (12.0-16.0) g/dL Hct 35.7 (35-47) % MCV 85.0 (78-100) fL MCH 27.4 (26-32) pg MCHC 32.2 (32-36) g/dL RDW 12.9 (11.5-14.0) % Plt Count 579 H (150-450) x10^3/uL MPV 8.7 (7.5-11.0) fL Gran % 78.7 H (36.0-66.0) % Immature Gran % (Auto) 0.5 H (0.00-0.4) % Nucleat RBC Rel Count 0.0 (0.00-0.1) % Eos # (Auto) 0.09 (0-0.5) x10^3/uL Immature Gran # (Auto) 0.10 H (0.00-0.03) x10^3u/L Absolute Lymphs (auto) 2.22 (1.0-4.6) x10^3/uL Absolute Monos (auto) 1.46 H (0.0-1.3) x10^3/uL Absolute Nucleated RBC 0.00 (0.00-0.01) x10^3u/L Lymphocytes % 12.1 L (24.0-44.0) % Monocytes % 7.9 (0.0-12.0) % Eosinophils % 0.5 (0.00-5.0) % Basophils % 0.3 (0.0-0.4) % Absolute Granulocytes 14.48 H (1.4-6.9) x10^3/uL Basophils # 0.05 (0-0.4) x10^3/uL Sodium 136 L (137-145) mmol/L Potassium 3.4 L (3.5-5.1) mmol/L Chloride 100 (98-107) mmol/L Carbon Dioxide 29 (22-30) mmol/L Anion Gap 9.7 (5-15) MEQ/L BUN 14 (7-17) mg/dL Creatinine 0.36 L (0.52-1.04) mg/dL Estimated GFR > 60.0 ML/MIN Glucose 133 H (74-106) mg/dL Calcium 8.8 (8.4-10.2) mg/dL - Progress Progress Note: 03/31/23 21:53 This patient's medical issue is 1 of low complexity. Level complex in the work- up performed is based on review of the patient's past medical history, review of the patient's medication list, review the patient's drug allergy list, history of present illness and physical findings on examination. The work-up in this patient will initially be a CT scan of the abdomen pelvis without contrast. 04/01/23 01:[address] scan of the abdomen pelvis was performed without contrast. This was interpreted by the radiologist and I reviewed the impression. There is a large hiatal hernia with again ohaxial rotation of the stomach. No free fluid. No definite evidence of volvulus at the time of the CAT scan. There was a recommendation to perform a CT scan of the abdomen pelvis with contrast to rule out infarction of the bowel/stomach or obstruction. Second CT scan of the abdomen pelvis with contrast shows no radiologic evidence for volvulus. There is a consolidation of the left lung lingula. This study was interpreted by the radiologist and I reviewed the impression CT scan of the chest without contrast shows a confluent consolidation in the lingular segment of the left upper lobe of the lung. Counseled pt/family regarding: lab results, diagnosis, need for follow-up, rad results Medical Desision Making - Diagnostic Testing Diagnostic test were ordered, analyzed, and reviewed by me: Yes Radiological Interpretation: Reviewed by me, Teleradiologist Report - Risk of complications The pt has a mod risk of morbidity or mortality based on: Need for prescription drug management - Departure Departure Disposition: Home Clinical Impression: Leukocytosis, Left pulmonary infiltrate on CXR Condition: Stable Critical Care Time: No Referrals: AMBER MUNIZ MD [Primary Care Provider] - Follow up/PCP as directed Additional Instructions: Drink plenty of fluids. Take your antibiotics as prescribed. Follow-up with your primary care provider and import export manager today, 04/01/2023, by phone, to make a follow-up appointment in the next 3 days for further evaluation management. Take your other medication as prescribed Prescriptions: Azithromycin 250 mg [Zithromax 250 MG TABLET] 250 mg PO ZPACK #6 tablet
[2023-03-31 21:37] VITALS: TEMP 97.2
--- NOTE | 2023-03-31 23:11 | XRAY ---
CLINICAL HISTORY:ABD pain; constipation COMPARISON:None. TECHNIQUE:A CT scan of the abdomen and pelvis was performed without IV contrast. FINDINGS: Large hiatal hernia with organo-axial rotation of the stomach which is seen herniated into the mediastinum. No definite radiological evidence of volvulus at the time of scan. The liver is normal in size and measures 15.5 cm. No focal parenchymal abnormality. The portal vein, intrahepatic biliary radicals, and the bile ducts are normal. The spleen, pancreas, and adrenal glands are unremarkable. The kidneys are unremarkable. They are normal in size and shape. No calculi or hydronephrosis is seen. The gallbladder is normal. No pericholecystic fluid collection or radio-dense calculi in the gall bladder. The ascending colon, the transverse colon, the descending colon, visualized small bowel loops are unremarkable. There is no evidence of significant enlargement of the mesenteric or retroperitoneal lymph nodes. The uterus and both adnexa appear normal. No omento-peritoneal disease. Urinary bladder and rectum appear normal. 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 There is suspicion of consolidation in lingular segment of the left lung in the limited acquired lung bases. IMPRESSION: 1. Large hiatal hernia with organo-axial rotation of the stomach. No free fluid. No definite evidence of volvulus at time of scan. No obvious sternal call gangrene CT abdomen & pelvis with contrast might be further helpful to evaluate any infarction and obstruction. 2.Rest of abdominal scan is unremarkable. 3. Suspicion of consolidation in lingular segment of left lung requires complete CT thorax evaluation. Electronically Signed by: Millicent Loya MD. (03/31/2023 22:09:17 PHARMACY DELIVERY DRIVER)
[2023-03-31] MEDS ORDERED: Sodium Chloride 0.9% 1000 ML 1,000 ML ONE (23:22)
[2023-03-31] MEDS ORDERED: Sodium Chloride 0.9% 1000 ML 1,000 ML IV SCH (23:30)
[2023-03-31 23:31] LABS: Absolute Neutrophil Ct (ANC) 14.48 x10^3/uL (1.4-6.9); BASOPHIL % 0.3 % (0.0-0.4); Basophil (Absolute #) 0.05 x10^3/uL (0-0.4); Eosinophil % 0.5 % (0.00-5.0); Eosinophil (Absolute #) 0.09 x10^3/uL (0-0.5); Hematocrit 35.7 % (35-47); Hemoglobin 11.5 g/dL (12.0-16.0); IMMATURE GRAN % 0.5 % (0.00-0.4); Lymphocyte (Absolute #) 2.22 x10^3/uL (1.0-4.6); Lymphocytes % 12.1 % (24.0-44.0); Mean Corpuscular Hemoglobin 27.4 pg (26-32); Mean Corpuscular Hgb Concent. 32.2 g/dL (32-36); Mean Platelet Volume 8.7 fL (7.5-11.0); Monocyte (Absolute #) 1.46 x10^3/uL (0.0-1.3); Monocytes % 7.9 % (0.0-12.0); Neutrophil % 78.7 % (36.0-66.0); Platelet Count 579 x10^3/uL (150-450); Red Cell Distribution Width 12.9 % (11.5-14.0); White Blood Count 18.4 x10^3/uL (4.0-10.5)
[2023-03-31 23:45] LABS: ANION GAP 9.7 MEQ/L (5-15); BLOOD UREA NITROGEN 14 mg/dL (7-17); CHLORIDE 100 mmol/L (98-107); Calcium 8.8 mg/dL (8.4-10.2); Carbon Dioxide 29 mmol/L (22-30); Creatinine 1 0.36 mg/dL (0.52-1.04); EST GLOMERULAR FILTRATION RATE > 60.0 ML/MIN; Glucose 133 mg/dL (74-106); Potassium 3.4 mmol/L (3.5-5.1); SODIUM 136 mmol/L (137-145)
--- NOTE | 2023-04-01 00:59 | XRAY ---
CLINICAL HISTORY:Leukocytosis; COMPARISON:None TECHNIQUE:Contiguous 3.[address] images of the chest were acquired without contrast. Coronal and sagittal reconstructions were obtained. FINDINGS: Confluent consolidation is seen in the lingular segment of the left upper lobe silhouetting the left heart border with ground-glass haziness in the adjacent apicoposterior segment of the left upper lobe, abutting the oblique fissure. Mild centrilobular emphysematous changes were seen in both upper lobes with minimal paraseptal emphysematous changes at apices. A small 2 mm subpleural nodule is seen in the medial segment of the right middle lobe and a similar 3 mm soft tissue density nodule is in the superior segment of the left lower lobe. Minimal pleural thickening was seen in the posterior aspect of the left lower lung. No free or encysted pleural effusion. Heart size is normal, and there is no pericardial effusion. A few subcentimetric non-specific mediastinal nodes were identified. The thoracic spine shows degenerative changes. There is no definite mass lesion in the chest wall. Large hiatus hernia noted. The scanned upper abdomen is unremarkable. IMPRESSION: Confluent consolidation in lingular segment of the left upper lobe silhouetting the left heart border with ground-glass haziness in the adjacent apicoposterior segment of the left upper lobe, abutting the oblique fissure. The findings represent acute infective etiology likely. Mild COPD Two 2-3mm small nodules in the right middle lobe and left lower lobe, low-risk nodules as per Fleischner Society guidelines. The [facility] ER office was called at [phone] at 11:53 PM SHOW HOST/HOSTESS, 03/31/2023 and the results were verbally communicated with Vito Stanley. Electronically Signed by: Millicent Loya MD. (03/31/2023 23:58:42 SHOW HOST/HOSTESS)
--- NOTE | 2023-04-01 01:01 | XRAY ---
CLINICAL HISTORY:ABD distention; Large hiatal hernia COMPARISON:03/31/2023 @ 03:10:00 TECHNIQUE:A CT scan of the abdomen and pelvis was performed with IV contrast. Coronal and sagittal reconstructive images were also obtained. FINDINGS: Sections of the lower thorax show consolidation in the left lingula. Abdomen: A large hiatus hernia was noted with organo-axial rotation of the stomach which is seen herniated into the mediastinum. No definite radiological evidence of volvulus at the time of scan. The liver is of average size, measuring 15.5 cm. No focal or diffuse parenchymal abnormality. The portal vein, intrahepatic biliary radicals and the bile ducts are normal. The spleen, pancreas, and adrenal glands are unremarkable. The kidneys are unremarkable. They are normal in size and shape. No calculi or hydronephrosis. The gallbladder is distended. There is no evidence of wall thickening/ pericholecystic collection. The ascending colon, the transverse colon, the descending colon, visualized small bowel loops are unremarkable. There is no evidence of significant enlargement of the mesenteric or retroperitoneal lymph nodes. Pelvis: The urinary bladder is unremarkable. The rectosigmoid colon is unremarkable. The uterus and adnexa appear unremarkable. No evidence of pelvic lymphadenopathy. The lumbar spine shows mild degenerative changes. IMPRESSION: Large hiatus hernia with organo-axial rotation of the stomach which is seen herniated into the mediastinum. No definite radiological evidence of volvulus at the time of scan. Consolidation in left lingula No significant interval changes since the previous study 03/31/2023 @ 03:10:00 Electronically Signed by: Millicent Loya MD. (04/01/2023 00:00:15 SENIOR RELIABILITY ENGINEER)
[2023-04-01 01:02] VITALS: BP 135/87; PULSE 97; RESP 19; O2SAT 95
[2023-04-01] MEDS ORDERED: ROCEPHIN 1 Gm-D5w 50 ml Bag** 1 G/50 ML IVPB IV STA (01:11)
[2023-04-01] MEDS ORDERED: Zofran 4 MG/2 ML VIAL IV ONE (01:16)
[2023-04-01] MEDS ORDERED: MORPHINE SULFATE 2 MG INJ IV ONE (01:16)
[2023-04-01] MEDS ORDERED: ROCEPHIN 1 Gm-D5w 50 ml Bag** 1 G/50 ML IVPB IV ONE (01:16)
[2023-04-01] MEDS ORDERED: MORPHINE SULFATE 2 MG INJ ONE (01:18)
[2023-04-01] MEDS ORDERED: Zofran 4 MG/2 ML VIAL ONE (01:19)
== END 2023-04-01 02:03 | disposition home or self-care (01) ==
LOC: ED 21:12
DX: D72.829 Elevated white blood cell count, unspecified (principal); R91.8 Other nonspecific abnormal finding of lung field; R10.84 Generalized abdominal pain; I10 Essential (primary) hypertension; E78.5 Hyperlipidemia, unspecified; Z79.899 Other long term (current) drug therapy; Z86.16 Personal history of COVID-19
CPT/HCPCS: 36000; 36415; 71250; 74176; 74177; 80048; 85025; 96374; 99284; J0696; J2270; J2405